=== PATIENT | male | born 1935 | race Caucasian/White ===

== ENCOUNTER 2020-07-05 09:48 | Outpatient (CLI) | payer MEDICARE, OTHER, SELFPAY ==
--- NOTE | 2020-07-05 10:10 | XR_ITS ---
WS: [id number] Sacroiliac joints, 3 views, 07/05/2020 Clinical Data: LEFT HIP PAIN/ARTHRITIS Comparison: None. Findings: The SI joints are normal in width. No erosion, sclerosis or destruction is seen. There are no fractur es or dislocations. The adjacent visualized pelvis and hips are unremarkable. XR/XR sacroiliac jts m 3V [id number] Impression: Negative SI joints.
--- NOTE | 2020-07-05 10:10 | XR_ITS ---
WS: [id number] Left hip, AP and frog leg views, 07/05/2020 Clinical Data: LEFT HIP PAIN/ARTHRITIS Comparison: None. Findings: No fractures or dislocations are seen. The hip joint is intact. The soft tissues are not remarkable. The adjacent pelvis is normal. XR/XR hip LT 2-3V wo/w pel* [id number] Impression: Negative left hip.
--- NOTE | 2020-07-05 10:10 | XR_ITS ---
WS: [id number] Lumbar spine, 3 views, 07/05/2020 Clinical Data: ARTHRITIS/L HIP PAIN Comparison: None. Findings: No compression fractures are seen. There is disc space narrowing at L1-L2 and L2-L3. There is a retro listhesis of L2 on L3 of 0.6 cm. The transverse processes and SI joints are normal. There is osteoart hritic spurring of all the lumbar vertebral bodies. There is a levoscoliosis. XR/XR lumbar spine 2-3V* [id number] Impression: 1. Degenerative disc narrowing at L1-L2 and L2-L3. 2. Retrolisthesis of 0.6 cm of L2 on L3. 3. Degenerative arthritis of all lumbar vertebral bodies with levoscoliosis.
== END 2020-07-05 09:49 | disposition home or self-care (01) ==
PROVIDERS: PCP Family Medicine; Visit Provider Family Medicine
DX: M25.552 Pain in left hip (principal); M47.816 Spondylosis without myelopathy or radiculopathy, lumbar region
CPT/HCPCS: 72100; 72202; 73502

== ENCOUNTER 2020-07-30 06:24 | Outpatient (RCR) | payer MEDICARE, OTHER, SELFPAY | END 2020-08-28 23:59 | disposition home or self-care (01) | LOC: SPT 06:24 | PROVIDERS: PCP Family Medicine; Referring Provider Family Medicine; Visit Provider Family Medicine | DX: M51.36 Other intervertebral disc degeneration, lumbar region (principal); M25.552 Pain in left hip; M19.90 Unspecified osteoarthritis, unspecified site | CPT/HCPCS: 97110; 97140; 97161 ==

== ENCOUNTER 2020-08-29 06:00 | Outpatient (RCR) | payer MEDICARE, OTHER, SELFPAY | END 2020-09-28 23:59 | disposition home or self-care (01) | LOC: SPT 06:00 | PROVIDERS: PCP Family Medicine; Referring Provider Family Medicine; Visit Provider Family Medicine | DX: M51.36 Other intervertebral disc degeneration, lumbar region (principal); M25.552 Pain in left hip; M19.90 Unspecified osteoarthritis, unspecified site | CPT/HCPCS: 97110 ==

== ENCOUNTER 2021-04-16 13:02 | Outpatient (CLI) | payer MEDICARE, OTHER, SELFPAY ==
--- NOTE | 2021-04-16 13:19 | XR_ITS ---
WS: [id number] Chest 2 views, 04/16/2021 Clinical Data: CHEST WALL PAIN Comparison: PA and lateral chest, 04/25/2018. Findings: No nodules, masses or effusions are seen. The heart is enlarged. The pulmonary vascularity is not increased. No pneumonia or pneumothorax is seen. The aortic arch and descending thoracic aorta show tortuosity and calcification. There is a dextroscoliosis. XR/XR chest 2V* [id number] Impression: Atherosclerosis and cardiomegaly.
--- NOTE | 2021-04-16 13:19 | XR_ITS ---
WS: [id number] Right shoulder, 3 views, 04/16/2021 Clinical Data: R SHOULDER PAIN Comparison: None. Findings: No fractures are seen. There is widening of the AC joint.. The adjacent right clavicle, right scapula and ribs are normal. The soft tissues are unremarkable. XR/XR shoulder RT min 2V* [id number] Impression: Widening of the right AC joint which may be a result of the recent injury.
--- NOTE | 2021-04-16 13:19 | XR_ITS ---
WS: [id number] Right elbow, 3 views, 04/16/2021 Clinical Data: R ELBOW PAIN Comparison: None. Findings: No fractures or dislocations are seen. The radial head is normal. The soft tissues are unremarkable. There is a small calcification adjacent to the biceps tuberosity of the proximal right radius. XR/XR elbow RT min 3V* [id number] Impression: Negative right elbow.
== END 2021-04-16 13:03 | disposition home or self-care (01) ==
LOC: RAD 13:07
PROVIDERS: PCP Family Medicine; Visit Provider Family Medicine
DX: M25.521 Pain in right elbow (principal); R07.89 Other chest pain; M25.511 Pain in right shoulder; I70.90 Unspecified atherosclerosis; I51.7 Cardiomegaly
CPT/HCPCS: 71046; 73030; 73080

== ENCOUNTER 2021-06-02 10:15 | Outpatient (CLI) | payer MEDICARE, OTHER, SELFPAY ==
--- NOTE | 2021-06-02 10:33 | MR_ITS ---
WS: [id number] MRI RIGHT SHOULDER HISTORY: R SHOULDER PAIN COMPARISON: Radiograph 04/16/2021 TECHNIQUE: Multiplanar sequences of the shoulder joint are submitted. This examination is significantly limited by motion artifact on most sequences. Mild widening of the AC joint 9.6 mm. There is a fluid gap along the AC joint due to ligamentous tear . There is mild inferior displacement of the distal clavicle with encroachment upon the supraspinatus muscle and tendon. Osteophytes and hypertrophic bone formation involving the distal clavicle. There is a large amount of fluid extending into the subacromial and subdeltoid bursa. Humeral head is high riding abutting the undersurface of the acromion. There is a 4 mm osteophyte from the distal undersur face of the acromion. No os acromion. Biceps tendon remains in normal position of the bicipital groov e. Increase fluid along the tendon sheath. No fracture or marrow edema. High riding humeral head. Tear with retraction of the supraspinatus tendon. Tendon is retracted to th e glenoid. There is fluid filling the gap of the distal tendon. Infraspinatus tendon is identified to the superior humeral head. Subscapularis tendon remains intact. Marked atrophy and a small amount of edema within the infraspinatus and supraspinatus muscles. Simple tear involving the anterior labrum. Abnormal signal in the inferior labrum. There is also increased edema in the muscle surrounding the clavicle and extending into the pectoralis muscle. MR/MR shoulder RT wo con* [id number] IMPRESSION: 1. Quality of this examination is limited due to patient motion on nearly all sequences. 2. Torn retracted supraspinatus and infraspinatus tendons with muscle atrophy and edema. 3. Complete tear with ACL ligament with a fluid gap and a large amount of randy a in the soft tissues surrounding the AC joint and bursal fluid. Mild widening of the AC joint. 4. Pectoralis muscle edema. 5. Humeral head is high riding abutting the undersurface of the acromion. 6. Mild degenerative changes and small tears involving the superior and inferi or labrum.
== END 2021-06-02 10:16 | disposition home or self-care (01) ==
LOC: RAD 10:19
PROVIDERS: PCP Family Medicine; Visit Provider Family Medicine
DX: M75.101 Unspecified rotator cuff tear or rupture of right shoulder, not specified as traumatic (principal); S43.51XA Sprain of right acromioclavicular joint, initial encounter; R60.0 Localized edema; X58.XXXA Exposure to other specified factors, initial encounter
CPT/HCPCS: 73221

== ENCOUNTER 2021-07-31 16:29 | Outpatient (CLI) | payer MEDICARE, OTHER, SELFPAY ==
--- NOTE | 2021-07-31 16:38 | XRR_ITS ---
PROCEDURE INFORMATION: Exam: XR Lumbosacral Spine Exam date and time: 07/31/2021 4:52 PM Age: 85 years old Clinical indication: Pain; Other: Left hip; Additional info: Degenerative disc disease, left hip pain TECHNIQUE: Imaging protocol: XR of the lumbosacral spine. Views: 2 or 3 views. Total images: 3 COMPARISON: CR XR lumbar spine 2-3V* [id number] 07/05/2020 10:23 AM FINDINGS: Bones/joints: T12-L3 degenerative disc disease is noted with vacuum phenomenon. Osteophytes are noted extending from the vertebrae. No acute spinal pathology is detected. L4-S1 Facet joint degenerative changes are present. Vertebral body heights are maintained. Soft tissues: Unremarkable. Vasculature: Incidental phleboliths noted. XR/XR lumbar spine 2-3V* [id number] IMPRESSION: Degenerative changes as described above but no acute pathology detected. These findings are stable when compared to the prior exam.
--- NOTE | 2021-07-31 16:53 | XRR_ITS ---
PROCEDURE INFORMATION: Exam: XR Left Hip Exam date and time: 07/31/2021 4:52 PM Age: 85 years old Clinical indication: Hip pain; Left hip; Additional info: Lt hip pain TECHNIQUE: Imaging protocol: XR Left hip. Views: 2 or 3 views hip with pelvis when performed. Total images: 3 COMPARISON: CR XR hip LT 2-3V wo/w pel* [id number] 07/05/2020 10:23 AM FINDINGS: Bones/joints: No acute fracture nor subluxation. No osseous erosion nor periosteal reaction. Soft tissues: Unremarkable. Vasculature: Incidental phleboliths noted. Moderate atherosclerotic disease is evident. XR/XR hip LT 2-3V wo/w pel* [id number] IMPRESSION: No acute osseous pathology.
== END 2021-07-31 16:30 | disposition home or self-care (01) ==
LOC: RAD 16:32
PROVIDERS: PCP Family Medicine; Visit Provider Family Medicine
DX: M51.36 Other intervertebral disc degeneration, lumbar region (principal); M25.552 Pain in left hip
CPT/HCPCS: 72100; 73502

== ENCOUNTER → 2021-08-06 12:09 | Outpatient (BNVA) | payer MEDICARE, OTHER, SELFPAY | PROVIDERS: PCP Family Medicine; Visit Provider Family Medicine | DX: N28.9 Disorder of kidney and ureter, unspecified (principal); N40.0 Benign prostatic hyperplasia without lower urinary tract symptoms; I10 Essential (primary) hypertension; M19.90 Unspecified osteoarthritis, unspecified site; I48.91 Unspecified atrial fibrillation; D64.9 Anemia, unspecified; I51.7 Cardiomegaly; Z79.01 Long term (current) use of anticoagulants; Z79.899 Other long term (current) drug therapy | CPT/HCPCS: 80053; 80061; 82607; 83036; 84443; 85025; 85610; 86140 ==

== ENCOUNTER → 2021-09-02 09:01 | Outpatient (BNVA) | payer MEDICARE, OTHER, SELFPAY | PROVIDERS: PCP Family Medicine; Visit Provider Family Medicine | DX: I48.91 Unspecified atrial fibrillation (principal) | CPT/HCPCS: 85610 ==

== ENCOUNTER → 2021-09-15 12:05 | Outpatient (BNVA) | payer MEDICARE, OTHER, SELFPAY | PROVIDERS: PCP Family Medicine; Visit Provider Family Medicine | DX: N28.9 Disorder of kidney and ureter, unspecified (principal); I10 Essential (primary) hypertension; M19.90 Unspecified osteoarthritis, unspecified site; I48.91 Unspecified atrial fibrillation; D64.9 Anemia, unspecified; I51.7 Cardiomegaly; Z79.01 Long term (current) use of anticoagulants | CPT/HCPCS: 85610 ==

== ENCOUNTER → 2021-10-02 10:31 | Outpatient (BNVA) | payer MEDICARE, OTHER, SELFPAY | PROVIDERS: PCP Family Medicine; Visit Provider Family Medicine | DX: I48.91 Unspecified atrial fibrillation (principal) | CPT/HCPCS: 85610 ==

== ENCOUNTER → 2021-10-29 09:36 | Outpatient (BNVA) | payer MEDICARE, OTHER, SELFPAY | PROVIDERS: PCP Family Medicine; Visit Provider Family Medicine | DX: I48.91 Unspecified atrial fibrillation (principal) | CPT/HCPCS: 85610 ==

== ENCOUNTER → 2021-11-24 08:50 | Outpatient (BNVA) | payer MEDICARE, OTHER, SELFPAY | PROVIDERS: PCP Family Medicine; Visit Provider Family Medicine | DX: I48.91 Unspecified atrial fibrillation (principal) | CPT/HCPCS: 85610 ==

== ENCOUNTER → 2021-12-01 08:25 | Outpatient (BNVA) | payer MEDICARE, OTHER, SELFPAY | PROVIDERS: PCP Family Medicine; Visit Provider Family Medicine | DX: I48.91 Unspecified atrial fibrillation (principal) | CPT/HCPCS: 85610 ==

== ENCOUNTER → 2021-12-29 10:41 | Outpatient (BNVA) | payer MEDICARE, OTHER, SELFPAY | PROVIDERS: PCP Family Medicine; Visit Provider Family Medicine | DX: I48.91 Unspecified atrial fibrillation (principal) | CPT/HCPCS: 85610 ==

== ENCOUNTER → 2022-02-24 08:56 | Outpatient (BNVA) | payer MEDICARE, OTHER, SELFPAY | PROVIDERS: PCP Family Medicine; Visit Provider Family Medicine | DX: I48.91 Unspecified atrial fibrillation (principal); Z78.9 Other specified health status | CPT/HCPCS: 85610 ==

== ENCOUNTER → 2022-04-21 08:15 | Outpatient (BNVA) | payer MEDICARE, OTHER, SELFPAY | PROVIDERS: PCP Family Medicine; Visit Provider Family Medicine | DX: I48.91 Unspecified atrial fibrillation (principal); I10 Essential (primary) hypertension | CPT/HCPCS: 85610 ==

== ENCOUNTER → 2022-05-15 12:04 | Outpatient (BNVA) | payer MEDICARE, OTHER, SELFPAY | PROVIDERS: PCP Family Medicine; Visit Provider Family Medicine | DX: I48.91 Unspecified atrial fibrillation (principal) | CPT/HCPCS: 85610 ==

== ENCOUNTER 2022-06-22 13:29 | Outpatient (CLI) | payer MEDICARE, OTHER, SELFPAY ==
[2022-06-22 15:26] LABS: INR 2.05 (0.9-1.1); Prothrombin Time (Patient) 23.9 Seconds (12.1-14.9)
== END 2022-06-22 13:30 | disposition home or self-care (01) ==
PROVIDERS: PCP Family Medicine; Visit Provider Family Medicine
DX: I48.91 Unspecified atrial fibrillation (principal); Z79.01 Long term (current) use of anticoagulants
CPT/HCPCS: 36415; 85610

== ENCOUNTER 2022-07-04 09:40 | Outpatient (CLI) | payer MEDICARE, OTHER, SELFPAY ==
--- NOTE | 2022-07-04 10:15 | CT_ITS ---
WS: [id number] NONCONTRAST CT LEFT HIP TECHNIQUE: Noncontrast CT LEFT with coronal and sagittal reformatted images. CLINICAL INFORMATION: M16.9 - Osteoarthritis of hip, unspecified COMPARISON: None. DLP: 315.[address] scans at [facility] use at least one of these dose optimization techniques: automated e xposure control; mA and/or kV adjustment per patient size (includes targeted exams where dose is matc hed to clinical indication); or iterative reconstruction. FINDINGS: Moderate degenerative arthritis LEFT hip joint space narrowing. Vascular calcification. Joint space n arrowing. No acute fractures. Mild subchondral cystic change involving the acetabulum. Proximal femur appears normal. Enthesophyte along the greater trochanter with soft tissue edema and fluid suspiciou s for trochanteric bursitis. Sigmoid diverticulosis. Partially visualized enlarged prostate measuring 5.[address]/CT hip LT wo con* [id number] IMPRESSION: 1. Moderate degenerative arthritis LEFT hip with joint space narrowing. 2. No acute fractures. 3. Enthesophyte along the greater trochanter with soft tissue edema and fluid suspicious for trochanteric bursitis.
== END 2022-07-04 09:41 | disposition home or self-care (01) ==
LOC: RAD 09:42
PROVIDERS: PCP Family Medicine; Visit Provider Family Medicine
DX: M16.12 Unilateral primary osteoarthritis, left hip (principal)
CPT/HCPCS: 73700

== ENCOUNTER → 2022-07-21 12:37 | Outpatient (BNVA) | payer MEDICARE, OTHER, SELFPAY | PROVIDERS: PCP Family Medicine; Visit Provider Family Medicine | DX: I48.91 Unspecified atrial fibrillation (principal) | CPT/HCPCS: 85610 ==

== ENCOUNTER → 2022-08-11 09:02 | Outpatient (BNVA) | payer MEDICARE, OTHER, SELFPAY | PROVIDERS: PCP Family Medicine; Visit Provider Family Medicine | DX: I48.91 Unspecified atrial fibrillation (principal) | CPT/HCPCS: 85610 ==

== ENCOUNTER → 2022-08-20 06:45 | Outpatient (BNVA) | payer MEDICARE, OTHER, SELFPAY | PROVIDERS: PCP Family Medicine; Referring Provider Family Medicine; Visit Provider Student in an Organized Health Care Education/Training Program | DX: M70.62 Trochanteric bursitis, left hip (principal) | CPT/HCPCS: 20610; 73502; 99204; J3301; J3490 ==

== ENCOUNTER → 2022-09-02 08:17 | Outpatient (BNVA) | payer MEDICARE, OTHER, SELFPAY | PROVIDERS: PCP Family Medicine; Visit Provider Family Medicine | DX: I48.91 Unspecified atrial fibrillation (principal); I10 Essential (primary) hypertension | CPT/HCPCS: 85610 ==

== ENCOUNTER → 2022-09-07 09:18 | Outpatient (BNVA) | payer MEDICARE, OTHER, SELFPAY | PROVIDERS: PCP Family Medicine; Visit Provider Family Medicine | DX: M16.9 Osteoarthritis of hip, unspecified (principal); I10 Essential (primary) hypertension; I48.91 Unspecified atrial fibrillation; R53.83 Other fatigue; E55.9 Vitamin D deficiency, unspecified; E03.9 Hypothyroidism, unspecified; Z13.6 Encounter for screening for cardiovascular disorders; Z79.899 Other long term (current) drug therapy | CPT/HCPCS: 80053; 80061; 82607; 82652; 83036; 84443; 85025; 86140 ==

== ENCOUNTER → 2022-09-09 15:37 | Outpatient (BNVA) | payer MEDICARE, OTHER, SELFPAY | PROVIDERS: PCP Family Medicine; Visit Provider Family Medicine | DX: M16.9 Osteoarthritis of hip, unspecified (principal); I10 Essential (primary) hypertension; I48.91 Unspecified atrial fibrillation; R53.83 Other fatigue; E55.9 Vitamin D deficiency, unspecified; E03.9 Hypothyroidism, unspecified; Z13.6 Encounter for screening for cardiovascular disorders | CPT/HCPCS: 84153 ==

== ENCOUNTER → 2022-09-10 09:57 | Outpatient (BNVA) | payer MEDICARE, OTHER, SELFPAY | PROVIDERS: PCP Family Medicine; Visit Provider Family Medicine | DX: E86.0 Dehydration (principal); I48.91 Unspecified atrial fibrillation; I10 Essential (primary) hypertension; R97.20 Elevated prostate specific antigen [PSA] | CPT/HCPCS: 80053; 84153 ==

== ENCOUNTER → 2022-09-11 11:35 | Outpatient (BNVA) | payer MEDICARE, OTHER, SELFPAY | PROVIDERS: PCP Family Medicine; Visit Provider Family Medicine | DX: E87.5 Hyperkalemia (principal) | CPT/HCPCS: 80048 ==

== ENCOUNTER → 2022-09-15 08:34 | Outpatient (BNVA) | payer MEDICARE, OTHER, SELFPAY | PROVIDERS: PCP Family Medicine; Visit Provider Family Medicine | DX: E86.0 Dehydration (principal); E87.5 Hyperkalemia; R97.20 Elevated prostate specific antigen [PSA]; R53.83 Other fatigue; I10 Essential (primary) hypertension; I48.91 Unspecified atrial fibrillation | CPT/HCPCS: 80048 ==

== ENCOUNTER → 2022-09-21 08:08 | Outpatient (BNVA) | payer MEDICARE, OTHER, SELFPAY | PROVIDERS: PCP Family Medicine; Visit Provider Family Medicine | DX: E87.5 Hyperkalemia (principal) | CPT/HCPCS: 80053 ==

== ENCOUNTER → 2022-09-28 08:01 | Outpatient (BNVA) | payer MEDICARE, OTHER, SELFPAY | PROVIDERS: PCP Family Medicine; Visit Provider Family Medicine | DX: E87.5 Hyperkalemia (principal); R53.83 Other fatigue; E87.1 Hypo-osmolality and hyponatremia; E86.0 Dehydration; I48.91 Unspecified atrial fibrillation; R97.20 Elevated prostate specific antigen [PSA] | CPT/HCPCS: 80053; 82088; 82533; 85610 ==

== ENCOUNTER → 2022-10-06 16:03 | Outpatient (BNVA) | payer MEDICARE, OTHER, SELFPAY | PROVIDERS: PCP Family Medicine; Visit Provider Clinical Nurse Specialist Adult Health | DX: E87.1 Hypo-osmolality and hyponatremia (principal); E87.5 Hyperkalemia; I48.11 Longstanding persistent atrial fibrillation; R60.0 Localized edema | CPT/HCPCS: 80048 ==

== ENCOUNTER → 2022-10-08 13:28 | Outpatient (BNVA) | payer MEDICARE, OTHER, SELFPAY | PROVIDERS: PCP Family Medicine; Visit Provider Family Medicine | DX: E87.1 Hypo-osmolality and hyponatremia (principal); R60.0 Localized edema | CPT/HCPCS: 80048 ==

== ENCOUNTER 2022-10-12 08:58 | Emergency (ER) | payer MEDICARE, OTHER, SELFPAY ==
--- NOTE | 2022-10-12 09:05 | ECG_ITS ---
[facility] Test Date: 2022-10-12 Pat Name: Daniel Gibson Department: Room: Gender: Male Bilingual [employer]: : 1935 Requested By: Satish Mead Order Number: [id number] Anuja MD: Shaun Perdomo M.D. Measurements Intervals [place] Rate: 50 P: 0 DE: 0 QRS: 34 QRSD: 80 T: 18 QT: 385 QTc: 354 Interpretive Statements ATRIAL FIBRILLATION WITH SLOW VENTRICULAR RESPONSE SEPTAL MYOCARDIAL INFARCTION , PROBABLY OLD [40+ ms Q WAVE IN V1/V2] No previous ECG available for comparison Electronically Signed On 10-12-2022 9:57:00 CDT by Shaun Perdomo M.D. [email or web address]
--- NOTE | 2022-10-12 09:05 | XRR_ITS ---
PROCEDURE INFORMATION: Exam: XR Chest Exam date and time: 10/12/2022 9:55 AM Age: 87 years old Clinical indication: Cough and dyspnea; Additional info: Dyspnea/cough TECHNIQUE: Imaging protocol: Radiologic exam of the chest. Views: 1 view. COMPARISON: CR XR chest 2V* [id number] 04/16/2021 1:30 PM FINDINGS: Lungs: Unremarkable. No consolidation. Pleural spaces: Unremarkable. No pleural effusion. No pneumothorax. Heart/Mediastinum: Stable cardiomegaly. Bones/joints: Unremarkable. XR/XR chest 1V portable [id number] IMPRESSION: No acute findings. No significant change.
--- NOTE | 2022-10-12 09:14 | ED_ITS ---
HPI - General Adult General: Chief complaint: Extremity Problem,Nontraumatic Stated complaint: physician sent, severe adema Time Seen by Provider: 10/12/22 09:03 Source: patient Mode of arrival: ambulatory History of Present Illness: 87-year-old male presents emergency room with complaint of lower leg edema. He states it began when he get some heat exhaustion he was taken off of his lisinopril for hyperkalemia and changed to amlodipine after the amlodipine is begun he noted swelling in his lower extremities initially persisted with amlodipine and then was seen last week by the midlevel Dr. Gold's office and switched to lisinopril. He states that he edema has been persistent despite changing back to lisinopril and stopping the amlodipine. He does have a history of atrial fibrillation and is currently on warfarin. Onset (ago): week(s) Location: left, right and lower extremity Severity: moderate Quality: aching Relieving factors: none Exacerbating factors: none Associated symptoms: Deny chest pain, confusion, cough, diaphoresis, decreased appetite, dyspnea, fevers/chills, headache(s), malaise, nausea, rash, palp itations, seizures, short of breath, syncope, vomiting or weakness Treatments prior to arrival: none Review of Systems Const: Denies: fever(s), chills, malaise or diaphoresis ENMT: Denies: throat pain, ear or mastoid pain, nasal discharge or nasal congestion Card: Denies: chest pain, palpitations or syncope Resp: Denies: dyspnea GI: Denies: nausea or vomiting : Denies: flank pain, dysuria, urinary frequency or urinary urgency Skin/Breast: Denies: rash Neuro: Denies: headache(s) or confusion PFS ED PFSH: Medical History Atrial fibrillation Essential hypertension Physical Exam Const: GENERAL APPEARANCE: cooperative and comfortable ORIENTATION/CONSCIOUSNESS: Yes awake, Yes oriented to person, Yes oriented to place and Yes oriented to time HENMT: COMMON NORMALS: normocephalic, atraumatic and hearing grossly normal bilaterally HEAD & SCALP: normocephalic and atraumatic Resp: COMMON NORMALS: normal respiratory effort, No retractions, No use of accessory muscles and clear to auscultation bilaterally AUSCULTATION: clear to auscultation bilaterally Cardio: COMMON NORMALS: regular rate, regular rhythm and No murmurs present (Cardio) RATE: regular rate RHYTHM: regular rhythm GI: COMMON NORMALS: Soft to palpation and No hepatosplenomegaly present AUSCULTATION: Yes normoactive bowel sounds PALPATION: Yes Soft to palpation, No Tenderness to palpation present (GI), No Guarding due to palpation present (GI) and Yes No hepatosplenomegaly present Extremity: COMMON NORMALS: normal to inspection, capillary refill normal and no calf tenderness GENERAL: Yes edema (2+ lower extremity edema to the level of the knees) Neuro: SENSORIUM/ORIENTATION: Yes oriented to person, Yes oriented to place and Yes oriented to time Skin: COMMON NORMALS: no rashes or lesions noted GENERAL SKIN EXAM: no rashes or lesions noted Course Vital Signs: Vital signs: Vital Signs Temperature 97.5 F L 10/12/22 09:16 Pulse Rate 48 L 10/12/22 11:30 Respiratory Rate 15 10/12/22 10:51 Blood Pressure 169/97 10/12/22 11:30 Pulse Oximetry 92 10/12/22 11:30 Oxygen Delivery Me thod Room Air 10/12/22 10:51 [facility] - General Adult Medical Decision Making Patient has edema lower extremities not appear to be in decompensated congestive heart failure at this time. Is not having pain or shortness of breath. He does have some chronic kidney disease. We will add hydralazine 25 mg twice daily. Set him up for an outpatient echocardiogram follow-up with primary care doctor return if he has further problems. Medical Records I reviewed the patient's medical records. Lab Data I reviewed the patient's lab results. 10/12/22 09:25 10/12/22 09:25 Radiology Impressions Chest X-Ray 10/12/22 09:05 IMPRESSION: No acute findings. No significant change. Laboratory Results WBC 6.4 10^3/uL (4.0-10.0) 10/12/22 09:25 RBC 4.46 10^6/uL (4.1-5.3) 10/12/22 09:25 Hgb 11.4 g/dL (11.7-16.6) L 10/12/22 09:25 Hct 38.9 % (42.0-52.0) L 10/12/22 09:25 MCV 87.2 fl (80-94) 10/12/22 09:25 MCH 25.6 pg (28.0-34.0) L 10/12/22 09:25 MCHC 29.3 g/dL (30.0-36.0) L 10/12/22 09:25 RDW 20.1 % (12.1-15.1) H 10/12/22 09:25 Plt Count 228 10^3/cmm (130-400) 10/12/22 09:25 MPV 8.7 fL (7.4-10.4) 10/12/22 09:25 Neut % (Auto) 73.4 % 10/12/22 09:25 Lymph % (Auto) 17.7 % 10/12/22 09:25 Stephens % (Auto) 5.4 % 10/12/22 09:25 Eos % (Auto) 2.3 % 10/12/22 09:25 Baso % (Auto) 0.6 % 10/12/22 09:25 Neut # (Auto) 4.72 10^3/uL (1.8-7.7) 10/12/22 09:25 Lymph # (Auto) 1.1 10^3/uL (0.8-4.8) 10/12/22 09:25 Stephens # (Auto) 0.4 10^3/uL (0.2-0.9) 10/12/22 09:25 Eos # (Auto) 0.2 10^3/uL (0.0-0.8) 10/12/22 09:25 Baso # (Auto) 0.0 10^3/uL (0.0-0.1) 10/12/22 09:25 Nucleated RBC % (auto) 0 % 10/12/22 09:25 Nucleated RBCs # 0.0 /100WBC 10/12/22 09:25 PT 20.80 SECONDS (12.1-14.9) H 10/12/22 09:25 INR 1.73 (0.8-1.2) H 10/12/22 09:25 Sodium 139 mmol/L (136-145) 10/12/22 09:25 Potassium 4.8 mmol/L (3.5-5.1) 10/12/22 09:25 Chloride 104 mmol/L (98-107) 10/12/22 09:25 Carbon Dioxide 23 mmol/L (22-29) 10/12/22 09:25 Anion Gap 16.8 (5-19) 10/12/22 09:25 BUN 26 mg/dL (8-23) H 10/12/22 09:25 Creatinine 1.5 mg/dL (0.7-1.2) H 10/12/22 09:25 GFR Calculation Not Reportable 10/12/22 09:25 Glucose 140 mg/dL (65-115) H 10/12/22 09:25 Calculated Osmolality 295 mOsm/kg (285-295) 10/12/22 09:25 Calcium 8.5 mg/dL (8.5-10.5) 10/12/22 09:25 Total Bilirubin 0.4 mg/dL (0.15-1.2) 10/12/22 09:25 AST 18 U/L (0-40) 10/12/22 09:25 ALT 13 U/L (0-41) 10/12/22 09:25 Alkaline Phosphatase 76 U/L (40-130) 10/12/22 09:25 Troponin T Baseline 34 ng/L (0-15) H 10/12/22 09:25 Troponin T 120 Minute 33.44 ng/L (0-15) H 10/12/22 11:23 Delta Troponin T -0.56 ABS# (0-10) L 10/12/22 11:23 NT-Pro-B Natriuret Pep 1857 pg/mL (0-450) H 10/12/22 09:25 Total Protein 5.8 g/dL (6.6-8.7) L 10/12/22 09:25 Albumin 3.8 g/dL (3.5-5.2) 10/12/22 09:25 Globulin 2.0 g/dL (1.3-4.6) 10/12/22 09:25 Discharge Plan Discharge Patient Disposition: Home Clinical Impression: Lower extremity edema, Atrial fibrillation, Chronic kidney disease (CKD) Condition: Stable Prescriptions: New hydralazine 25 mg tablet 25 mg PO BID Qty: 60 0RF No Action (DME) hydrofera blue ready See Rx Instructions .Route .MEDSUPPLY Qty: 1 0RF Rx Instructions: As directed per included instructions meclizine 12.5 mg Tablet 12.5 mg PO TID PRN (Reason: Dizziness) Super Beta Prostate 1 cap PO BID lisinopril 20 mg tablet 20 mg PO QAM prednisone 5 mg tablet 5 mg PO QAM warfarin 3 mg tablet 3 mg PO QAM omeprazole 20 mg capsule,delayed release(DR/EC) 20 mg PO QAM Anacin 400-32 mg Tablet 2 tab PO Q6H PRN (Reason: Pain) Discharge Orders: Discharge ED (Routine); Ordered 10/12/22 Ordered By: Satish North Referrals: Mjaor Higginbotham DO [Primary Care Provider] - Discharge Diet: Usual diet Discharge Activity: Increase activity as tolerated Patient Instructions: Opioid Safety, Pain Management Activity Restrictions/Additional Instructions: Continue lisinopril add hydralazine 25 twice daily follow-up with your doctor within the next week to reevaluate blood pressure and lower extremity edema. Coding Level of Care Code ED Junior Analyst for [employer]
[2022-10-12 09:16] VITALS: BP 190/83; PULSE 62; RESP 18; TEMP 36.4; O2SAT 94; BMI 25.8
[2022-10-12 09:21] VITALS: BP 172/81; PULSE 59; RESP 19; O2SAT 91
[2022-10-12 09:38] LABS: Basophils % 0.6 %; Eosinophils # 0.2 10^3/uL (0.0-0.8); Eosinophils % 2.3 %; Hematocrit 38.9 % (42.0-52.0); Hemoglobin 11.4 g/dL (11.7-16.6); Lymphocytes # 1.1 10^3/uL (0.8-4.8); Lymphocytes % 17.7 %; Mean Corpuscular HGB Conc 29.3 g/dL (30.0-36.0); Mean Corpuscular Hemoglobin 25.6 pg (28.0-34.0); Mean Corpuscular Volume 87.2 fl (80-94); Mean Platelet Volume 8.7 fL (7.4-10.4); Monocytes # 0.4 10^3/uL (0.2-0.9); Monocytes % 5.4 %; Neutrophils # 4.72 10^3/uL (1.8-7.7); Neutrophils % 73.4 %; Nucleated Red Blood Cells % 0 %; Platelet Count 228 10^3/cmm (130-400); Red Blood Count 4.46 10^6/uL (4.1-5.3); Red Cell Distribution Width 20.1 % (12.1-15.1); White Blood Count 6.4 10^3/uL (4.0-10.0)
[2022-10-12 09:46] LABS: INR 1.73 (0.8-1.2)
[2022-10-12 09:51] VITALS: BP 159/86; PULSE 48; O2SAT 98
[2022-10-12 09:52] LABS: Troponin(5th) Baseline 34 ng/L (0-15)
[2022-10-12 10:16] LABS: Alanine Aminotransferase 13 U/L (0-41); Albumin Level 3.8 g/dL (3.5-5.2); Alkaline Phosphatase 76 U/L (40-130); Aspartate Amino Transferase 18 U/L (0-40); Blood Urea Nitrogen 26 mg/dL (8-23); Calcium 8.5 mg/dL (8.5-10.5); Carbon Dioxide 23 mmol/L (22-29); Chloride 104 mmol/L (98-107); Glucose 140 mg/dL (65-115); NT Pro B Type Natriuretic Pept 1857 pg/mL (0-450); Osmolality Calculated 295 mOsm/kg (285-295); Sodium 139 mmol/L (136-145); Total Bilirubin 0.4 mg/dL (0.15-1.2); Total Protein 5.8 g/dL (6.6-8.7)
[2022-10-12 10:19] LABS: Anion Gap 16.8 (5-19); Potassium 4.8 mmol/L (3.5-5.1)
[2022-10-12] MEDS: FUROsemide 10 mg/mL SDV 4mL 40 MG IVP (10:21)
--- NOTE | 2022-10-12 10:32 | PC.PHAR ---
pt states he takes care of his own medications-rx filled 08/14/22 90d/s lisinopril 20mg bid pt states he only takes 20mg qam states he was put on amlodipine 5mg daily but states it was dced around 10/08/22 and changed back to lisinopril 20mg qam-notes are made in the pharmacy comment
[2022-10-12 10:51] VITALS: BP 170/84; PULSE 58; RESP 15; O2SAT 95
[2022-10-12 11:30] VITALS: BP 169/97; PULSE 48; O2SAT 92
[2022-10-12 11:46] LABS: Troponin 5 2HR 33.44 ng/L (0-15)
[2022-10-12 11:49] LABS: Troponin 5 2HR Delta -0.56 ABS# (0-10)
--- NOTE | 2022-10-13 12:22 | DCPLANNER ---
Addendum entered by Sapna Escalante 10/30/22 11:11: Patient did attend echo Addendum entered by Sapna Escalante 10/14/22 13:09: Patient has an outpatient echo scheduled for Sunday, October 23, 2022 at 8:30. Original Note: manager community outreach had message to schedule an outpatient echo cardiogram for patient. manager community outreach faxed signed order to centralized scheduling, who will call patient with appointment information.
== END 2022-10-12 11:30 | disposition home or self-care (01) ==
PROVIDERS: Emergency Provider Family Medicine; PCP Family Medicine
DX: R60.0 Localized edema (principal); I48.91 Unspecified atrial fibrillation; I12.9 Hypertensive chronic kidney disease with stage 1 through stage 4 chronic kidney disease, or unspecified chronic kidney disease; N18.9 Chronic kidney disease, unspecified; Z79.01 Long term (current) use of anticoagulants
CPT/HCPCS: 71045; 80053; 83880; 84484; 85025; 85610; 93005; 96374; 99285; J1940

== ENCOUNTER → 2022-10-19 09:48 | Outpatient (BNVA) | payer MEDICARE, OTHER, SELFPAY | PROVIDERS: PCP Family Medicine; Visit Provider Family Medicine | DX: N18.9 Chronic kidney disease, unspecified (principal); E87.5 Hyperkalemia; I48.91 Unspecified atrial fibrillation; E87.1 Hypo-osmolality and hyponatremia; Z09 Encounter for follow-up examination after completed treatment for conditions other than malignant neoplasm; I10 Essential (primary) hypertension | CPT/HCPCS: 80048; 83880 ==

== ENCOUNTER 2022-10-23 07:38 | Outpatient (CLI) | payer MEDICARE, OTHER, SELFPAY ==
--- NOTE | 2022-10-23 08:07 | USCV_ITS ---
Daniel Gibson Age: 87 Gender: M : 1935 Exam Date: 10/23/2022 08:25 Ordering Phys: Satish North DO Technologist: Exam Location: [facility] [place] Indication: murmur BP: 136 / 85 HR: 73 Rhythm: Sinus Technical Quality: Adequate MEASUREMENTS (Male / Female) Normal Values 2D ECHO LV Diastolic Diameter PLAX 4.1 cm 4.2 - 5.9 / 3.9 - 5.3 cm LV Systolic Diameter PLAX 2.7 cm IVS Diastolic Thickness 1.7 cm 0.6 - 1.0 / 0.6 - 0.9 cm IVS Systolic Thickness 2.4 cm LVPW Diastolic Thickness 1.7 cm 0.6 - 1.0 / 0.6 - 0.9 cm LVPW Systolic Thickness 2.3 cm LVOT Diameter 2.1 cm LV Ejection Fraction 2D Teich 64.7 % LV Ejection Fraction MOD 2C 78.7 % LV Ejection Fraction 2C AL 78.4 % LA Diameter 5.5 cm Aorta at Sinotubular Diameter 3.2 cm IVC Diameter 2.6 cm M-MODE Aortic Annulus Diameter 3.7 cm LA Ao Ratio MM 1.5 MV E Point Septal Separation 1.0 cm DOPPLER AV Peak Velocity 311.0 cm/s LVOT Peak Velocity 91.0 cm/s AV Area Cont Eq vti 1.0 cm squared AV Area Cont Eq pk 1.0 cm squared MV Area PHT 5.0 cm squared Mitral E to A Ratio 3.7 MV E' Velocity 56.5 cm/s Mitral E to MV E' Ratio 11.5 Mitral E to LV E' Lateral Ratio 9.4 Mitral E to LV E' Septal Ratio 14.8 TR Peak Velocity 269.0 cm/s TR Peak Gradient 28.9 mmHg TV Peak E Velocity 114.0 cm/s Right Atrial Pressure 3.0 mmHg Pulmonary Artery Systolic Pressu 31.9 mmHg RV Acceleration Time 0.1 s FINDINGS Left Ventricle Left ventricle is normal size. LV systolic function is normal with EF of 55 to 60%. No regional wall motion abnormalities are seen. Right Ventricle Normal in size and function Right Atrium Normal in size Left Atrium Normal in size Mitral Valve Structurally normal mitral valve. Mild mitral regurgitation. Aortic Valve Aortic valve is thickened and calcified. Moderate aortic stenosis with aortic valve area of 1.01cm2 and mean gradient of 22.8mmHg. Tricuspid Valve Mild to moderate tricuspid regurgitation. RVSP is 40-45mmHg. Mild pulmonary hypertension. Pulmonic Valve Not well visualized Pericardium Normal Aorta Normal in size IVC Appears to be dilated CONCLUSIONS LV systolic function is normal with EF of 55-60% Mild mitral regurgitation Moderate aortic stenosis. Mild to moderate tricuspid regurgitation Mild pulmonary hypertension IVC appears to be dilated. Compared to prior echocardiogram from 2019, aortic stenosis has worsened. Roger Krueger MD (Electronically Signed) Final Date: 23 October 2022 14:32 S
[2022-10-23 09:43] LABS: Anion Gap 14.9 (5-19); Blood Urea Nitrogen 34 mg/dL (8-23); Calcium 8.9 mg/dL (8.5-10.5); Carbon Dioxide 26 mmol/L (22-29); Chloride 101 mmol/L (98-107); Glucose 93 mg/dL (65-115); NT Pro B Type Natriuretic Pept 1270 pg/mL (0-450); Osmolality Calculated 291 mOsm/kg (285-295); Potassium 4.9 mmol/L (3.5-5.1); Sodium 137 mmol/L (136-145)
== END 2022-10-23 07:39 | disposition home or self-care (01) ==
PROVIDERS: PCP Family Medicine; Visit Provider Family Medicine
DX: E87.1 Hypo-osmolality and hyponatremia (principal); E87.5 Hyperkalemia; I48.91 Unspecified atrial fibrillation; N18.9 Chronic kidney disease, unspecified; I34.0 Nonrheumatic mitral (valve) insufficiency; I35.0 Nonrheumatic aortic (valve) stenosis; I07.1 Rheumatic tricuspid insufficiency; I27.20 Pulmonary hypertension, unspecified
CPT/HCPCS: 36415; 80048; 83880; 93306

== ENCOUNTER → 2022-10-28 08:56 | Outpatient (BNVA) | payer MEDICARE, OTHER, SELFPAY | PROVIDERS: PCP Family Medicine; Visit Provider Family Medicine | DX: E87.1 Hypo-osmolality and hyponatremia (principal); E87.5 Hyperkalemia; I48.91 Unspecified atrial fibrillation; I10 Essential (primary) hypertension | CPT/HCPCS: 80048; 83880; 85610 ==

== ENCOUNTER → 2022-11-03 09:07 | Outpatient (BNVA) | payer MEDICARE, OTHER, SELFPAY | PROVIDERS: PCP Family Medicine; Visit Provider Family Medicine | DX: E87.1 Hypo-osmolality and hyponatremia (principal); E87.5 Hyperkalemia; I35.0 Nonrheumatic aortic (valve) stenosis; R60.0 Localized edema; I10 Essential (primary) hypertension | CPT/HCPCS: 80048; 83880 ==

== ENCOUNTER → 2022-11-18 11:44 | Outpatient (BNVA) | payer MEDICARE, OTHER, SELFPAY | PROVIDERS: PCP Family Medicine; Referring Provider Family Medicine; Visit Provider Internal Medicine | DX: I35.0 Nonrheumatic aortic (valve) stenosis (principal); I10 Essential (primary) hypertension; I48.91 Unspecified atrial fibrillation; R06.09 Other forms of dyspnea; Z79.01 Long term (current) use of anticoagulants | CPT/HCPCS: 99204 ==

== ENCOUNTER → 2022-11-23 10:57 | Outpatient (BNVA) | payer MEDICARE, OTHER, SELFPAY | PROVIDERS: PCP Family Medicine; Visit Provider Family Medicine | DX: E87.5 Hyperkalemia (principal); I48.91 Unspecified atrial fibrillation; E87.1 Hypo-osmolality and hyponatremia; R60.0 Localized edema; I10 Essential (primary) hypertension | CPT/HCPCS: 80048; 83880; 85610 ==

== ENCOUNTER → 2022-11-24 07:23 | Outpatient (BNVA) | payer MEDICARE, OTHER, SELFPAY | PROVIDERS: PCP Family Medicine; Visit Provider Student in an Organized Health Care Education/Training Program | DX: M70.62 Trochanteric bursitis, left hip | CPT/HCPCS: 20610; 99213; J3301; J3490 ==

== ENCOUNTER → 2022-12-07 10:18 | Outpatient (BNVA) | payer MEDICARE, OTHER, SELFPAY | PROVIDERS: PCP Family Medicine; Visit Provider Family Medicine | DX: I48.91 Unspecified atrial fibrillation (principal); N39.0 Urinary tract infection, site not specified | CPT/HCPCS: 85610; 87077; 87086; 87184 ==

== ENCOUNTER 2022-12-16 08:59 | Outpatient (CLI) | payer MEDICARE, OTHER, SELFPAY ==
--- NOTE | 2022-12-16 | ECG_ITS ---
[facility] Test Date: 2022-12-16 Pat Name: Daniel Gibson Department: Room: Gender: Male Support Worker: Rolf Olivarez : 1935 Requested By: Roger Krueger Order Number: [id number] Anuja MD: Roger Krueger M.D. Interpretive Statements NAME OF STUDY: LEXISCAN SESTAMIBI STRESS TEST INDICATION: [Chest Pain; Shortness of Breath, ] Procedure: At the baseline, the blood pressure was 155/57mmHg with a heart rate of 73bpm. The electrocardiogram showed atrial fibrillation, normal axis with normal ST and T's. The Lexiscan was infused over a period of 20 seconds. A total of 0.4 mg of Lexiscan was infused. The stress phase was continued for a total of 5 minutes. Heart rate was at the end of stress phase was 76 bpm and a blood pressure of 132/83 mmHg. The EKG at the peak infusion revealed atrial fibrillation with no significant ST-T wave changes. Sestamibi was injected 20 seconds after the Lexiscan infusion. Blood pressure at the end of recovery phase was 137/80 mmHg with a heart rate of 72 bpm. Conclusion: 1. Normal EKG response to Lexiscan infusion 2. No Lexiscan induced chest pain or cardiac arrhythmia. 3. Normal blood pressure and heart rate response. 4. Sestamibi/sestamibi perfusion scan pending; see separate report. Electronically Signed On 12-24-2022 12:50:35 CDT by Roger Krueger M.D. [email or web address]
[2022-12-16 09:30] VITALS: BMI 26.1
--- NOTE | 2022-12-16 09:36 | NMCV_ITS ---
NM tao perf SPECT r/s* [id number] Daniel Gibson Age: 87 Gender: M : 1935 Exam Date: 12/16/2022 10:06 Ordering Phys: Roger Krueger M.D ([email or web address]) Technologist: KOKI Simental Exam Location: [facility] [address] Indications: CHEST PAIN, SHORTNESS OF BREATH STRESS TEST Please see separate stress test report in [facility] for full findings IMAGE PROTOCOL Rest/Stress 1 Lexiscan Day Radiopharmaceutical Dose (mCi) Administration Site Administered by Rest: Tc-99m 10.6 IV Guru Johnson, SALES AGENT [employer] Sestamibi Stress:Tc-99m 32.6 IV Guru Johnson, SALES AG[employer] Sestamibi Rest: 16-Dec-2022 60 Discovery 630 Stress: 16-Dec-2022 30 Discovery 630 0.4mg Lexiscan. Images obtained in supine and prone position. SPECT RESULTS Technical Quality: Excellent Raw Data Analysis: Normal Image Corrections: No attenuation or motion correction applied Summed Stress Score: 0 Summed Rest Score: 0 Summed Difference Score: 0 PERFUSION FINDINGS SPECT images demonstrate homogeneous tracer distribution throughout the myocardium. FUNCTIONAL RESULTS (calculated via Gated SPECT) Stress Image LV EF (%): 79 Stress EDV (mL):82 TID: 1.02 Stress ESV (mL):17 FUNCTIONAL FINDINGS: There is normal left ventricular systolic function. IMPRESSIONS 1. Normal myocardial perfusion imaging with no evidence of ischemia 2. LV systolic function is normal Roger Krueger MD (Electronically Signed) Final Date: 16 December 2022 13:30 S
[2022-12-16] MEDS: regadenoson 0.4 Mg/5 ml Syringe IVP (11:06)
[2022-12-16 11:26] VITALS: BP 137/80; PULSE 80
== END 2022-12-16 09:00 | disposition home or self-care (01) ==
LOC: CDL 09:00
PROVIDERS: PCP Family Medicine; Visit Provider Internal Medicine
DX: R06.09 Other forms of dyspnea (principal); R07.9 Chest pain, unspecified
CPT/HCPCS: 36415; 78452; 93017; 96374; A9500; J2785

== ENCOUNTER → 2022-12-21 09:22 | Outpatient (BNVA) | payer MEDICARE, OTHER, SELFPAY | PROVIDERS: PCP Family Medicine; Visit Provider Family Medicine | DX: E87.1 Hypo-osmolality and hyponatremia (principal); E87.5 Hyperkalemia | CPT/HCPCS: 80048 ==

== ENCOUNTER → 2022-12-25 13:03 | Outpatient (BNVA) | payer MEDICARE, OTHER, SELFPAY | PROVIDERS: PCP Family Medicine; Visit Provider Nurse Practitioner Family | DX: I96 Gangrene, not elsewhere classified (principal); L89.892 Pressure ulcer of other site, stage 2 | CPT/HCPCS: 11042; 99213; A6446 ==

== ENCOUNTER → 2022-12-31 11:05 | Outpatient (BNVA) | payer MEDICARE, OTHER, SELFPAY | PROVIDERS: PCP Family Medicine; Visit Provider Nurse Practitioner Family | DX: I96 Gangrene, not elsewhere classified (principal); L97.822 Non-pressure chronic ulcer of other part of left lower leg with fat layer exposed | CPT/HCPCS: 11042 ==

== ENCOUNTER → 2023-01-06 13:59 | Outpatient (BNVA) | payer MEDICARE, OTHER, SELFPAY | PROVIDERS: PCP Family Medicine; Visit Provider Family Medicine | DX: E87.1 Hypo-osmolality and hyponatremia (principal); E87.5 Hyperkalemia; N28.9 Disorder of kidney and ureter, unspecified; I48.91 Unspecified atrial fibrillation | CPT/HCPCS: 80048; 85610 ==

== ENCOUNTER → 2023-01-07 10:03 | Outpatient (BNVA) | payer MEDICARE, OTHER, SELFPAY | PROVIDERS: PCP Family Medicine; Visit Provider Nurse Practitioner Family | DX: I96 Gangrene, not elsewhere classified (principal); L97.822 Non-pressure chronic ulcer of other part of left lower leg with fat layer exposed | CPT/HCPCS: 11042; A6212 ×2 ==

== ENCOUNTER → 2023-01-08 13:25 | Outpatient (BNVA) | payer MEDICARE, OTHER, SELFPAY | PROVIDERS: PCP Family Medicine; Visit Provider Thoracic Surgery (Cardiothoracic Vascular Surgery) | DX: L97.822 Non-pressure chronic ulcer of other part of left lower leg with fat layer exposed (principal) | CPT/HCPCS: 97597; A6253 ==

== ENCOUNTER → 2023-01-14 13:37 | Outpatient (BNVA) | payer MEDICARE, OTHER, SELFPAY | PROVIDERS: PCP Family Medicine; Visit Provider Nurse Practitioner Family | DX: R52 Pain, unspecified (principal); S81.802A Unspecified open wound, left lower leg, initial encounter; X58.XXXA Exposure to other specified factors, initial encounter | CPT/HCPCS: 87070; 87077; 87176; 87186; 87205 ==

== ENCOUNTER → 2023-01-14 13:37 | Outpatient (BNVA) | payer MEDICARE, OTHER, SELFPAY | PROVIDERS: PCP Family Medicine; Visit Provider Nurse Practitioner Family | DX: I96 Gangrene, not elsewhere classified (principal); L97.822 Non-pressure chronic ulcer of other part of left lower leg with fat layer exposed | CPT/HCPCS: 11042; 11045; 99212 ==

== ENCOUNTER 2023-01-15 06:17 | Outpatient (CLI) | payer MEDICARE, OTHER, SELFPAY ==
--- NOTE | 2023-01-15 06:30 | USCV_ITS ---
Daniel Gibson Age: 87 Gender: M : 1935 Exam Date: 01/15/2023 06:38 Ordering Phys: Gabriella Bee NP Technologist: Eran Ramon [place] [facility] [place]: pain PROCEDURES: Venous duplex imaging was performed in only the left lower extremity. The following venous structures were evaluated: common femoral vein, profunda vein, proximal portion of the greater saphenous vein, superficial femoral vein, and the popliteal vein. In addition, the posterior tibial and peroneal trunk were evaluated. Serial compression, augmentation maneuvers, and spectral Doppler flow evaluation were performed. FINDINGS: Normal 2-D Doppler and augmentation and compressibility throughout the lower extremity venous structures. Additional imaging through the proximal calf veins also reveals no thrombus. Limited evaluation of the greater saphenous vein is patent with no thrombus. CONCLUSIONS No evidence of left lower extremity DVT. Ryan Enriquez MD (Electronically Signed) Final Date: 15 January 2023 09:14 S
== END 2023-01-15 06:18 | disposition home or self-care (01) ==
LOC: RAD 06:17
PROVIDERS: PCP Family Medicine; Visit Provider Nurse Practitioner Family
DX: M79.605 Pain in left leg (principal)
CPT/HCPCS: 93971

== ENCOUNTER → 2023-01-19 13:37 | Outpatient (BNVA) | payer MEDICARE, OTHER, SELFPAY | PROVIDERS: PCP Family Medicine; Visit Provider Thoracic Surgery (Cardiothoracic Vascular Surgery) | DX: I96 Gangrene, not elsewhere classified (principal); L97.822 Non-pressure chronic ulcer of other part of left lower leg with fat layer exposed | CPT/HCPCS: 97597; 97598 ==

== ENCOUNTER → 2023-01-26 15:27 | Outpatient (BNVA) | payer MEDICARE, OTHER, SELFPAY | PROVIDERS: PCP Family Medicine; Visit Provider Nurse Practitioner Family | DX: I96 Gangrene, not elsewhere classified (principal); L97.822 Non-pressure chronic ulcer of other part of left lower leg with fat layer exposed; S81.811A Laceration without foreign body, right lower leg, initial encounter; W22.8XXA Striking against or struck by other objects, initial encounter; Z09 Encounter for follow-up examination after completed treatment for conditions other than malignant neoplasm | CPT/HCPCS: 11042; 11045 ==

== ENCOUNTER 2023-01-28 08:10 | Outpatient (CLI) | payer MEDICARE, OTHER, SELFPAY ==
--- NOTE | 2023-01-28 08:45 | USR_ITS ---
PROCEDURE INFORMATION: Exam: US Duplex Bilateral Lower Extremity Arteries Exam date and time: 01/28/2023 8:26 AM Age: 87 years old Clinical indication: Edema, localized; Lower extremity, bilateral; Prior surgery; Surgery date: 6+ months; Surgery type: Right knee replacement; Additional info: R60.0 - localized edema TECHNIQUE: Imaging protocol: Real-time ultrasound scan of the arteries of the bilateral lower extremities with 2-D park scale, color Doppler flow and spectral waveform analysis. Images documented and saved. COMPARISON: US soft tissue/extremity [id number] 08/31/2017 2:36 PM FINDINGS: Right common femoral artery: No occlusion or significant stenosis. Normal waveform. Right superficial femoral artery: No occlusion or significant stenosis. Normal waveform. Right popliteal artery: No occlusion or significant stenosis. Normal waveform. Left common femoral artery: No occlusion or significant stenosis. Normal waveform. Left superficial femoral artery: No occlusion or significant stenosis. Normal waveform. Left popliteal artery: Moderate stenosis of the left popliteal artery. Other arteries: Atherosclerotic plaque throughout the proximal right and left lower extremity. No hemodynamically significant stenosis in the right lower extremity. US/CV arterial duplex [facility] [id number] IMPRESSION: Diffuse atherosclerotic plaque throughout the right and left proximal lower extremities. No hemodynamically significant stenosis in the right lower extremity. Moderate stenosis of the left popliteal artery.
== END 2023-01-28 08:11 | disposition home or self-care (01) ==
LOC: RAD 08:10
PROVIDERS: PCP Family Medicine; Visit Provider Nurse Practitioner Family
DX: R60.0 Localized edema (principal); I70.203 Unspecified atherosclerosis of native arteries of extremities, bilateral legs; S81.802A Unspecified open wound, left lower leg, initial encounter; X58.XXXA Exposure to other specified factors, initial encounter; Z96.651 Presence of right artificial knee joint
CPT/HCPCS: 93925

== ENCOUNTER 2023-02-02 09:12 | Outpatient (CLI) | payer MEDICARE, OTHER, SELFPAY ==
--- NOTE | 2023-02-02 09:30 | USCV_ITS ---
Daniel Gibson Age: 87 Gender: M : 1935 Exam Date: 02/02/2023 09:36 Ordering Phys: Gabriella Bee NP Technologist: Exam Location: [facility] [place] Indication: HISTORY: PROCEDURES: Bilateral duplex Venous Insufficiency study of the Deep and Superficial systems was carried out according to normal protocol with the patient in supine positon for deep system and dependent position for the superficial system. FINDINGS: All deep veins demonstrated compressibility without evidence of intraluminal thrombus or increased echogenicity. Spectral analysis of Doppler signals demonstrates normal response to compression maneuvers indicating patency without obstruction. Reflux determinations were made with the patient in the dependent position, the weight being on the contralateral leg. Vein measurements and reflux times are listed below were applicable. No notable reflux was seen at this time. The small saphenous veins on the right side appears to have thick henderson. CONCLUSIONS No evidence of DVT in the above-mentioned identifiable veins. 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 No significant venous reflux either in the deep or in the superficial veins Dr Fiona Whitaker MD [facility] (Electronically Signed) Final Date: 03 February 2023 09:06 S
== END 2023-02-02 09:13 | disposition home or self-care (01) ==
LOC: RAD 09:12
PROVIDERS: PCP Family Medicine; Visit Provider Nurse Practitioner Family
DX: R60.0 Localized edema (principal); L97.812 Non-pressure chronic ulcer of other part of right lower leg with fat layer exposed; L97.822 Non-pressure chronic ulcer of other part of left lower leg with fat layer exposed; Z09 Encounter for follow-up examination after completed treatment for conditions other than malignant neoplasm
CPT/HCPCS: 11042; 11045; 93970; 99212

== ENCOUNTER → 2023-02-04 11:35 | Day surgery (SDC) | payer MEDICARE, OTHER, SELFPAY ==
--- NOTE | 2023-02-04 11:54 | XR_ITS ---
WS: [id number] Portable AP upright chest, 02/04/2023 Clinical Data: PICC PLACEMENT Comparison: Portable chest, 10/12/2022 Findings: The right PICC line enters the superior vena cava and ends in the distal portion. No pneumo thorax is seen. Impression: Satisfactory placement of right PICC line.
[2023-02-04 12:00] VITALS: BP 124/73; PULSE 80; RESP 18; TEMP 36.8; O2SAT 96; BMI 25.8
== END ==
PROVIDERS: PCP Family Medicine; Visit Provider Nurse Practitioner Family
DX: Z45.2 Encounter for adjustment and management of vascular access device (principal); B95.8 Unspecified staphylococcus as the cause of diseases classified elsewhere
CPT/HCPCS: 36573; 71045; 96365; J0878

== ENCOUNTER 2023-02-08 13:29 | Outpatient (CLI) | payer MEDICARE, OTHER, SELFPAY ==
[2023-02-08 14:10] LABS: Basophils # 0.1 10^3/uL (0.0-0.1); Basophils % 1.3 %; Eosinophils # 0.1 10^3/uL (0.0-0.8); Eosinophils % 2.2 %; Hematocrit 38.3 % (37-53); Lymphocytes # 1.3 10^3/uL (0.8-4.8); Lymphocytes % 22.4 %; Mean Corpuscular HGB Conc 30.5 g/dL (30-55); Mean Corpuscular Hemoglobin 27.3 pg (27-33); Mean Corpuscular Volume 89.3 fl (82-101); Mean Platelet Volume 9.2 fL (7.4-10.4); Monocytes # 0.6 10^3/uL (0.2-0.9); Monocytes % 9.9 %; Neutrophils # 3.77 10^3/uL (1.8-7.7); Neutrophils % 63.5 %; Nucleated Red Blood Cells % 0 %; Platelet Count 321 10^3/cmm (157-399); Red Blood Count 4.29 10^6/uL (3.85-5.65); Red Cell Distribution Width 19.1 % (12.1-15.1); White Blood Count 5.94 10^3/uL (3.29-11.43)
[2023-02-08 14:26] LABS: Alanine Aminotransferase 9 U/L (0-41); Albumin Level 3.4 g/dL (3.5-5.2); Alkaline Phosphatase 92 U/L (40-130); Aspartate Amino Transferase 18 U/L (0-40); Blood Urea Nitrogen 32 mg/dL (8-23); Calcium 9.3 mg/dL (8.5-10.5); Carbon Dioxide 22 mmol/L (22-29); Chloride 102 mmol/L (98-107); Creatine Phosphokinase 48 U/L (39-308); Globulin 3.1 g/dL (1.3-4.6); Glucose 75 mg/dL (65-115); Osmolality Calculated 290 mOsm/kg (285-295); Sodium 137 mmol/L (136-145); Total Bilirubin 0.3 mg/dL (0.15-1.2); Total Protein 6.5 g/dL (6.6-8.7)
[2023-02-08 16:56] LABS: Anion Gap 17.6 (5-19); Potassium 4.6 mmol/L (3.5-5.1)
== END 2023-02-08 13:30 | disposition home or self-care (01) ==
LOC: LAB 13:29
PROVIDERS: PCP Family Medicine; Visit Provider Nurse Practitioner Family
DX: S80.821D Blister (nonthermal), right lower leg, subsequent encounter (principal); S80.822D Blister (nonthermal), left lower leg, subsequent encounter; S91.114D Laceration without foreign body of right lesser toe(s) without damage to nail, subsequent encounter; S81.812D Laceration without foreign body, left lower leg, subsequent encounter; S81.811D Laceration without foreign body, right lower leg, subsequent encounter; X58.XXXD Exposure to other specified factors, subsequent encounter; B95.7 Other staphylococcus as the cause of diseases classified elsewhere
CPT/HCPCS: 80053; 82550; 85025; 99213

== ENCOUNTER 2023-02-12 07:42 | Outpatient (CLI) | payer MEDICARE, OTHER, SELFPAY ==
[2023-02-12 08:20] LABS: Blood Urea Nitrogen 38 mg/dL (8-23)
== END 2023-02-12 07:43 | disposition home or self-care (01) ==
LOC: RAD 07:43
PROVIDERS: PCP Family Medicine; Visit Provider Nurse Practitioner Family
DX: Z01.89 Encounter for other specified special examinations (principal)
CPT/HCPCS: 82565; 84520

== ENCOUNTER 2023-02-12 12:59 | Outpatient (CLI) | payer MEDICARE, OTHER, SELFPAY ==
[2023-02-12 13:07] LABS: Basophils # 0.1 10^3/uL (0.0-0.1); Basophils % 1.4 %; Eosinophils # 0.1 10^3/uL (0.0-0.8); Eosinophils % 2.2 %; Hematocrit 35.5 % (37-53); Lymphocytes # 1.4 10^3/uL (0.8-4.8); Lymphocytes % 23.9 %; Mean Corpuscular Hemoglobin 27.4 pg (27-33); Mean Corpuscular Volume 88.5 fl (82-101); Mean Platelet Volume 9.3 fL (7.4-10.4); Monocytes # 0.6 10^3/uL (0.2-0.9); Monocytes % 10.9 %; Neutrophils # 3.58 10^3/uL (1.8-7.7); Neutrophils % 61.1 %; Nucleated Red Blood Cells % 0 %; Platelet Count 351 10^3/cmm (157-399); Red Blood Count 4.01 10^6/uL (3.85-5.65); Red Cell Distribution Width 19.4 % (12.1-15.1); White Blood Count 5.86 10^3/uL (3.29-11.43)
[2023-02-12 13:31] LABS: Alanine Aminotransferase 10 U/L (0-41); Albumin Level 3.2 g/dL (3.5-5.2); Alkaline Phosphatase 92 U/L (40-130); Blood Urea Nitrogen 41 mg/dL (8-23); Calcium 8.8 mg/dL (8.5-10.5); Carbon Dioxide 19 mmol/L (22-29); Chloride 99 mmol/L (98-107); Creatine Phosphokinase 162 U/L (39-308); Globulin 3.1 g/dL (1.3-4.6); Glucose 99 mg/dL (65-115); Osmolality Calculated 286 mOsm/kg (285-295); Sodium 133 mmol/L (136-145); Total Bilirubin 0.2 mg/dL (0.15-1.2); Total Protein 6.3 g/dL (6.6-8.7)
[2023-02-12 13:32] LABS: Anion Gap 19.8 (5-19); Aspartate Amino Transferase 25 U/L (0-40); Potassium 4.8 mmol/L (3.5-5.1)
== END 2023-02-12 13:00 | disposition home or self-care (01) ==
LOC: LAB 12:59
PROVIDERS: PCP Family Medicine; Visit Provider Nurse Practitioner Family
DX: B95.7 Other staphylococcus as the cause of diseases classified elsewhere (principal)
CPT/HCPCS: 80053; 82550; 85025

== ENCOUNTER 2023-02-14 12:59 | Inpatient (IN) | payer MEDICARE, OTHER, SELFPAY ==
[2023-02-14] VITALS (10 sets, daily range): BP systolic 88–124; BP diastolic 50–73; PULSE 69–83; RESP 14–21; TEMP 36.5–36.7; O2SAT 94–100
--- NOTE | 2023-02-14 13:27 | ED_ITS ---
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 He has been having some generalized weakness as well. Associated symptoms: Reports malaise; Deny chest pain, dyspnea, headache(s), nausea, rash or vomiting Review of Systems 2 Const: Reports: fatigue and malaise; Denies: fever(s) or chills Eyes: Denies: eye discomfort ENMT: Denies: throat pain or dental pain Card: Denies: chest pain Resp: Denies: dyspnea GI: Denies: abdominal pain, nausea, vomiting or diarrhea : Denies: urinary frequency Musc: Reports: extremity pain; Denies: neck pain or back pain Skin/Breast: Denies: rash Neuro: Denies: headache(s) PFSH ED 2 PFSH: Medical History Essential hypertension Atrial fibrillation Physical Exam 2 Const: COMMON NORMALS: patient oriented x3 HENMT: COMMON NORMALS: normocephalic and atraumatic HEAD & SCALP: n ormocephalic and atraumatic Eye: COMMON NORMALS: Equal, round and reactive pupils present and EOMs intact bilaterally PUPIL: Yes Equal, round and reactive pupils present Neck/C-Spine: COMMON NORMALS: full ROM and supple Chest: COMMONS NORMALS: normal inspection of the chest and normal palpation of entire chest wall Resp: COMMON NORMALS: normal respiratory effort, No retractions, No use of accessory muscles and clear to auscultation bilaterally AUSCULTATION: clear to auscultation bilaterally Cardio: COMMON NORMALS: regular rate, regular rhythm and No murmurs present (Cardio) RATE: regular rate RHYTHM: regular rhythm GI: COMMON NORMALS: Normal to inspection, nondistended, normoactive bowel sounds present, Soft to palpation, non-tender and no masses PALPATION: Yes Soft to palpation Extremity: COMMON NORMALS: full ROM NARRATIVE EXTREMITY EXAM: Chronic wounds to bilateral legs no severe erythema does have swelling of his feet distal pulses palpable Neuro: COMMON NORMALS: patient oriented x3, moves all extremities and no focal motor deficits Psych: COMMON NORMALS: mental status grossly normal, Normal thought process present and cooperative THOUGHT PROCESS: Normal thought process present Skin: COMMON NORMALS: no rashes or lesions noted GENERAL SKIN EXAM: no rashes or lesions noted Course 2 Vital Signs: Vital signs: Vital Signs Temperature 97.7 F 02/14/23 13:23 Pulse Rate 69 02/14/23 14:38 Respiratory Rate 14 02/14/23 14:38 Blood Pressure 109/61 02/14/23 14:38 Pulse Oximetry 100 02/14/23 14:38 Oxygen Delivery Me thod Room Air 02/14/23 14:38 MDM - General Adult Medical Decision Making Patient presents here with acute on chronic renal failure likely from dehydration patient given IV fluids here spoke to hospitalist will admit at this time. Medical Records I reviewed the patient's medical records. Lab Data I reviewed the patient's lab results. 02/14/23 13:34 02/14/23 13:34 Laboratory Results WBC 6.40 10^3/uL (3.29-11.43) 02/14/23 13:34 RBC 4.10 10^6/uL (3.85-5.65) 02/14/23 13:34 Hgb 11.20 g/dL (11.27-16.99) L 02/14/23 13:34 Hct 35.7 % (37-53) L 02/14/23 13:34 MCV 87.1 fl (82-101) 02/14/23 13:34 MCH 27.3 pg (27-33) 02/14/23 13:34 MCHC 31.4 g/dL (30-55) 02/14/23 13:34 RDW 19.2 % (12.1-15.1) H 02/14/23 13:34 Plt Count 330 10^3/cmm (157-399) 02/14/23 13:34 MPV 8.9 fL (7.4-10.4) 02/14/23 13:34 Neut % (Auto) 66.4 % 02/14/23 13:34 Lymph % (Auto) 19.4 % 02/14/23 13:34 [place] % (Auto) 10.3 % 02/14/23 13:34 Eos % (Auto) 2.0 % 02/14/23 13:34 Baso % (Auto) 1.4 % 02/14/23 13:34 Neut # (Auto) 4.25 10^3/uL (1.8-7.7) 02/14/23 13:34 Lymph # (Auto) 1.2 10^3/uL (0.8-4.8) 02/14/23 13:34 [place] # (Auto) 0.7 10^3/uL (0.2-0.9) 02/14/23 13:34 Eos # (Auto) 0.1 10^3/uL (0.0-0.8) 02/14/23 13:34 Baso # (Auto) 0.1 10^3/uL (0.0-0.1) 02/14/23 13:34 Nucleated RBC % (auto) 0 % 02/14/23 13:34 Nucleated RBCs # 0.0 /100WBC 02/14/23 13:34 Sodium 131 mmol/L (136-145) L 02/14/23 13:34 Potassium 5.0 mmol/L (3.5-5.1) 02/14/23 13:34 Chloride 96 mmol/L (98-107) L 02/14/23 13:34 Carbon Dioxide 16 mmol/L (22-29) L 02/14/23 13:34 Anion Gap 24.0 (5-19) H 02/14/23 13:34 BUN 54 mg/dL (8-23) H 02/14/23 13:34 Creatinine 4.5 mg/dL (0.7-1.2) H 02/14/23 13:34 GFR Calculation Not Reportable 02/14/23 13:34 Glucose 93 mg/dL (65-115) 02/14/23 13:34 Calculated Osmolality 286 mOsm/kg (285-295) 02/14/23 13:34 Calcium 8.8 mg/dL (8.5-10.5) 02/14/23 13:34 Total Bilirubin 0.2 mg/dL (0.15-1.2) 02/14/23 13:34 AST 30 U/L (0-40) 02/14/23 13:34 ALT 13 U/L (0-41) 02/14/23 13:34 Alkaline Phosphatase 100 U/L (40-130) 02/14/23 13:34 Total Protein 6.5 g/dL (6.6-8.7) L 02/14/23 13:34 Albumin 3.4 g/dL (3.5-5.2) L 02/14/23 13:34 Globulin 3.1 g/dL (1.3-4.6) 02/14/23 13:34 Urine Color Yellow (Yellow) 02/14/23 13:55 Urine Appearance Clear (CLEAR) 02/14/23 13:55 Urine pH 5 (5-7) 02/14/23 13:55 Ur Specific Wilkinson 1.025 (1.005-1.030) 02/14/23 13:55 Urine Protein Trace (Negative) 02/14/23 13:55 Urine Glucose (UA) Norm (Normal) 02/14/23 13:55 Urine Ketones Negative (Negative) 02/14/23 13:55 Urine Blood Neg (Negative) 02/14/23 13:55 Urine Nitrate Negative (Negative) 02/14/23 13:55 Urine Bilirubin 1+ (Negative) H 02/14/23 13:55 Urine Urobilinogen Norm mg/dL (Negative) 02/14/23 13:55 Ur Leukocyte Esterase Negative (Negative) 02/14/23 13:55 Urine RBC None /hpf (0-2) 02/14/23 13:55 Urine WBC 0-4 /hpf (0-5) H 02/14/23 13:55 Ur Squamous Epith Cells 0-4 /hpf (0-5) H 02/14/23 13:55 Amorphous Sediment 1+ /hpf 02/14/23 13:55 Urine Bacteria Trace /hpf (NONE) 02/14/23 13:55 No radiology studies performed this visit EKG Data EKG 1: I personally reviewed and interpreted this EKG as follows: EKG interpretation date: 02/14/23 EKG interpretation time: 13:14 Interpretation: afib hr [address] or t wave abnormalities qrs 76 qtc 409 Discharge Plan Discharge Patient Disposition: Admitted As Inpatient Clinical Impression: Acute on chronic kidney failure, Dehydration Condition: Stable Prescriptions: No Action (DME) hydrofera blue ready See Rx Instructions .Route .MEDSUPPLY Qty: 1 0RF Rx Instructions: As directed per included instructions warfarin 4 mg tablet See Rx Instructions .ROUTE .COMPLEX Qty: 30 2RF Dose Instruction: TAKE 1 TABLET BY MOUTH EVERY DAY Rx Instructions: TAKE 1 TABLET BY MOUTH EVERY DAY furosemide 40 mg tablet 40 mg PO DAILY Qty: 30 3RF mupirocin 2 % ointment 1 applic topical BID Qty: 50 3RF lisinopril 5 mg tablet 5 mg PO QAM Qty: 90 0RF tramadol 50 mg tablet 50 mg PO BID PRN (Reason: pain) Qty: 60 0RF meclizine 12.5 mg Tablet 12.5 mg PO TID PRN (Reason: Dizziness) Super Beta Prostate 1 cap PO BID prednisone 5 mg tablet 5 mg PO QAM Anacin 400-32 mg Tablet 2 tab PO Q6H PRN (Reason: Pain) omeprazole 20 mg capsule,delayed release(DR/EC) 20 mg PO DAILY Rx Instructions: TAKE 1 CAPSULE BY MOUTH DAILY Referrals: Major Higginbotham DO [Primary Care Provider] - Coding Level of Care Code 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
[2023-02-14] MEDS: sodium chloride 0.9% 1,000 ML 999 ML IV (13:35)
[2023-02-14 13:40] LABS: Basophils # 0.1 10^3/uL (0.0-0.1); Basophils % 1.4 %; Eosinophils # 0.1 10^3/uL (0.0-0.8); Hematocrit 35.7 % (37-53); Lymphocytes # 1.2 10^3/uL (0.8-4.8); Lymphocytes % 19.4 %; Mean Corpuscular HGB Conc 31.4 g/dL (30-55); Mean Corpuscular Hemoglobin 27.3 pg (27-33); Mean Corpuscular Volume 87.1 fl (82-101); Mean Platelet Volume 8.9 fL (7.4-10.4); Monocytes # 0.7 10^3/uL (0.2-0.9); Monocytes % 10.3 %; Neutrophils # 4.25 10^3/uL (1.8-7.7); Neutrophils % 66.4 %; Nucleated Red Blood Cells % 0 %; Platelet Count 330 10^3/cmm (157-399); Red Cell Distribution Width 19.2 % (12.1-15.1)
[2023-02-14 14:00] LABS: Alanine Aminotransferase 13 U/L (0-41); Albumin Level 3.4 g/dL (3.5-5.2); Alkaline Phosphatase 100 U/L (40-130); Blood Urea Nitrogen 54 mg/dL (8-23); Calcium 8.8 mg/dL (8.5-10.5); Carbon Dioxide 16 mmol/L (22-29); Chloride 96 mmol/L (98-107); Globulin 3.1 g/dL (1.3-4.6); Glucose 93 mg/dL (65-115); Osmolality Calculated 286 mOsm/kg (285-295); Sodium 131 mmol/L (136-145); Total Bilirubin 0.2 mg/dL (0.15-1.2); Total Protein 6.5 g/dL (6.6-8.7)
[2023-02-14 14:04] LABS: Aspartate Amino Transferase 30 U/L (0-40)
[2023-02-14 14:08] LABS: Bilirubin Urine 1+ (Negative); Blood Urine Neg (Negative); Glucose Urine UA Norm (Normal); Ketones Urine Negative (Negative); Leukocyte Esterase Urine Negative (Negative); Nitrate Urine Negative (Negative); Protein Urine Trace (Negative); Specific Gravity, Urine 1.025 (1.005-1.030); Urine Appearance Clear (CLEAR); Urine Color Yellow (Yellow); Urobilinogen Urine Norm (Negative); pH Urine 5 (5-7)
[2023-02-14 14:09] LABS: Add Urine Culture? No; Add Urine Microscopic? YES; Amorphous Sediment Urine 1+ /hpf; Bacteria Urine TRACE /hpf; Squamous Epithelial Cell Urine 0-4 /hpf (0-5); WBC Urine 0-4 /hpf (0-5)
--- NOTE | 2023-02-14 14:47 | PC.PHAR ---
Addendum entered by Andreina Herron 02/14/23 14:51: PTS SON AND STATES DR KHAN PUT HIS PREDNISONE ON HOLD WAS TAKING 5 MG DAILY PTS SON STATES THE PT HASNT TAKEN FOR ABOUT 3 DAYS Original Note: PTS SON AND PTS VERIFIED PTS MEDICATIONS-
[2023-02-14] MEDS: sodium chloride 0.9% 500 ML IV (16:10)
--- NOTE | 2023-02-14 17:15 | ECG_ITS ---
[facility] Test Date: 2023-02-14 Pat Name: Daniel Gibson Department: Room: 255 Gender: Male [employer] Supervisor: : 1935 Requested By: Bonilla Csineros Order Number: [id number] Anuja MD: Fiona Whitaker M.D. Measurements Intervals [place] Rate: 89 P: 0 ND: 0 QRS: -17 QRSD: 76 T: 77 QT: 363 QTc: 444 Interpretive Statements Possible ATRIAL FIBRILLATION Past SEPTAL MYOCARDIAL INFARCTION , PROBABLY OLD [40+ ms Q WAVE IN V1/V2] Compared to ECG 10/12/2022 09:24:16 Heavy baseline artifact; need to repeat Electronically Signed On 02-14-2023 19:51:02 ASSEMBLER FINAL by Fiona Whitaker M.D. [email or web address]
--- NOTE | 2023-02-14 20:18 | P.HP_ITS ---
Providers/Chief Complaint 2 Admitting Physician: Marilee Crenshaw MD Primary Care Provider: Major Higginbotham DO Chief Complaint: cant urinate, open wounds on legs History of Present Illness Daniel iGbson Sr is a 87 yo man w/ b/l Sensorineural hearing loss requiring hearing aids, HTN, Atrial fibrillation, chronic wounds in his legs, a reaction to two tablets of Amlodipine in 08/29/2022, who presented to the ED on 02/14/2023 w/ complaints of poor healing of the wounds in his legs. The patient states that he took 2 tablets of amlodipine on 08/29/2022, and immediately experienced a reaction where both legs swelled up to the tibia. The swelling and resultant edema was so bad that the patient's skin split, later became infected, and developed into ulcers. He said that the wounds were initially treated with peanut and honey, but it did not help his ulcers. Patient states that since then, he has been not been able to bear his own weight on his legs. He especially complains of pain in his legs, that is worse at night. He tells me that during the day, he spends 60% of his day sitting, but when he lies down during the day, he also feels the pain in his legs that he feels at night, but the pain does not feel as bad compared to nights. The pain in his legs feels like a pulled muscle w/ topical and subtopical (below the skin and into the muscle) tenderness. Since August, he has been taking Anacin (high dose Aspirin- Caffeine tablet) 2 tabs of 400mg-32mg q6h prn (~8tabs) about 2 days a week. In the last 3-4 weeks, he has had drainage from the leg. Additional symptoms in the past 3 to 4 weeks, include loss of appetite, poor food & fluid intake, dizziness, lightheadedness, decreased UOP, despite increased urinary urgency. HE tells me that he has venous insufficiency. He had a venous/arterial insufficiency study on 02/12/2023 w/ CT surgeon, Dr. Parra, but he states that Dr. Parra did not feel that he had the renal function to tolerate the arterial portion of the test. He states that he has been seen by different Physicians for the wounds in his legs, namely wound clinic Dr. Mijares, Dr. Parra, & his Tv News Director Dr. Krueger. He states that an arterial US done a month ago showed R. popliteal artery blockage. In the ED, his BP was as low as 88/50 mmHg. He was given 1.5 L of NS. His Cr was ALEJANDRO on ~CKDIII and admitted for an ALEJANDRO on CKD with further management of his wounds. Review of Systems 2 Const: Reports: change in appetite (poor ), change in weight (30lb weight loss), malaise and night sweats (3 times over a period of 5 to 6 months); Denies: fever(s) or chills Eyes: Denies: change in vision or blurry vision ENMT: Reports: nasal discharge, nasal congestion and other (no dysphagia); Denies: ear or mastoid pain Card: Reports: edema, swelling of feet/ankles and lightheadedness; Denies: chest pain or palpitations Resp: Denies: dyspnea, productive cough or wheezing GI: Denies: abdominal pain, nausea, vomiting, diarrhea, constipation, hematochezia or melena : Reports: difficulty urinating, urinary frequency and urinary urgency; Denies: dysuria Musc: Reports: joint pain and other (myalgias) Skin/Breast: Reports: rash, pruritus and skin pain Neuro: Reports: headache(s), seizure-like activity and other (no LOC) Psych: Denies: anxiety, depression, suicidal ideation or homicidal ideation Endo: Reports: cold intolerance Hever/Lymph: Reports: easy bruising and easy bleeding (On Coumadin) Medications/Allergies Home Medications Medication Instructions Recorded Confirmed Last Taken Type hydrofera blue ready #1 ea 07/07/22 02/14/23 Unknown Rx Super Beta Prostate 1 cap PO BID 10/12/22 02/14/23 02/14/23 History aspirin-caffeine 400 mg-32 mg 3 tab PO Q6H PRN Pain 10/12/22 02/14/23 02/03/23 History tablet (Anacin) meclizine 12.5 mg tablet 12.5 mg PO TID PRN Dizziness 10/12/22 02/14/23 02/02/23 History prednisone 5 mg tablet 5 mg PO QAM 10/12/22 02/14/23 3 Days Ago History ~02/11/23 SEE PHARMACY COMMENT lisinopril 5 mg tablet 5 mg PO QAM bp #90 tabs 01/15/23 02/14/23 02/14/23 Rx tramadol 50 mg tablet 50 mg PO BID PRN pain #60 tabs 02/01/23 02/14/23 02/03/23 Rx omeprazole 20 mg capsule,delayed 20 mg PO QAM 02/04/23 02/14/23 02/14/23 History release daptomycin 500 mg intravenous See Rx Instructions .Route .COMPLEX 02/14/23 02/14/23 02/14/23 12:00 History solution furosemide 40 mg tablet 40 mg PO QAM edema 02/14/23 02/14/23 02/14/23 History warfarin 3 mg tablet 3 mg PO QAM 02/14/23 02/14/23 02/14/23 History Allergies Allergy/AdvReac Type Severity Reaction Status Date / Time codeine Allergy Severe Unconscious Verified 02/14/23 13:32 morphine Allergy Severe Unconscious Verified 02/14/23 13:32 tramadol Allergy Intermediate ADR-Dizzine Verified 02/14/23 13:32 ss amlodipine Allergy swelling Verified 02/14/23 13:32 ranitidine AdvReac Mild sedation, Verified 02/14/23 13:32 nausea PFSH Acute 2 PFSH: Medical History (Updated 02/15/23 @ 02:49 by Marilee Crenshaw MD) Essential hypertension Atrial fibrillation Surgical History (Updated 02/14/23 @ 20:58 by Marilee Crenshaw MD) Clavicle fracture R. clavicle surgery H/O: knee surgery Left knee cartilage surgery H/O shoulder replacement Left shoulder. History of total right knee replacement Family History (Updated 02/14/23 @ 20:59 by Marilee Crenshaw MD) Mother Cancer Pancreatic cancer Father Cancer colon cancer Social History (Updated 02/14/23 @ 20:59 by Marilee Crenshaw MD) Smoking and tobacco/nicotine status: never used tobacco/nicotine Alcohol intake: never Vitals/I&O/Wt Last Vital Signs Temp 98.1 F 02/14/23 19:32 Pulse 75 02/14/23 19:32 Resp 16 02/14/23 19:32 BP 94/59 02/14/23 19:32 Pulse Ox 95 02/14/23 19:32 O2 Del Method Room Air 02/14/23 19:32 02/14/23 02/14/23 02/14/23 06:59 14:59 22:59 Intake Total 1500 / 1500 Balance 1500 / 1500 Weight last 48 hrs Weight 68.946 kg Physical Exam 2 Const: GENERAL APPEARANCE: cooperative; not comfortable ORIENTATION/CONSCIOUSNESS: Yes awake, Yes oriented to person, Yes oriented to place and Yes oriented to time HENMT: HEAD & SCALP: normocephalic and atraumatic EXTERNAL EAR: Yes external ears normal MOUTH: Normal oral and palatal mucosa present THROAT: posterior oropharynx normal Eye: CONJUNCTIVA: Yes conjunctivae normal PUPIL: Yes Equal, round and reactive pupils present EOM: No EOM abnormal Neck/C-Spine: GENERAL: Yes normal visual inspection and Yes trachea midline THYROID: Thyroid normal CAROTIDS: No bruit Lymph: LYMPHATIC: No lymphadenopathy Resp: OTHER: CTAB with no wheezes rales or rhonchi Cardio: OTHER: Regular rate and rhythm, no murmurs, no rubs, no gallops or clicks. It was difficult to appreciate carotid bruits due to his respirations. I was able to appreciate dorsalis pedis pulses on both feet with hand-held Dopplers. GI: AUSCULTATION: Yes normoactive bowel sounds PALPATION: Yes Soft to palpation, No Tenderness to palpation present (GI), No Guarding due to palpation present (GI), No Rigid due to palpation and No No hepatosplenomegaly present Extremity: NARRATIVE EXTREMITY EXAM: Mildly cyanotic R. foot that was cool to touch. R. 2nd toe concerning for gangrene. GENERAL: No clubbing, Yes cyanosis (R. foot) and Yes edema Neuro: SENSORIUM/ORIENTATION: Yes alert, Yes oriented to person and Yes oriented to place CRANIAL NERVES: Yes CN normal except as noted SPEECH: s peech normal MOTOR EXAM: 5/5 motor strength present throughout Psych: APPEARANCE: Yes grossly normal ATTITUDE: Yes calm and Yes engaged ACTIVITY/MOTOR BEHAVIOR: Yes appropriate eye contact SPEECH: Yes normal speech MOOD & AFFECT: Yes euthymic mood THOUGHT PROCESS: Normal thought process present THOUGHT CONTENT: Yes Normal thought content present A TTENTION/CONCENTRATION: Yes attention grossly intact MEMORY/COGNITION: Yes memory grossly intact Skin: NARRATIVE SKIN EXAM: chronic ulcers w/ eschars on the b/l lower extremity. Urinary Catheter Management: Liriano: Cath Placed During This Visit: yes Urinary Catheter Date of Insertion: 02/14/23 Urinary Catheter Time of Insertion: 19:51 Data 02/14/23 13:34 02/14/23 13:34 A&P Assessment and plan (1) Acute on chronic kidney failure: Qualifiers: Acute renal failure type: unspecified Chronic kidney disease stage: u nspecified stage Qualified Code(s): N17.9 - Acute kidney failure, unspecified; N18.9 - Chronic kidney disease, unspecified (2) Dehydration: (3) Atrial fibrillation: Qualifiers: Atrial fibrillation type: unspecified Qualified Code(s): I48.91 - Unspecified atrial fibrillation (4) Dyspnea on exertion: (5) Skin ulceration: Qualifiers: Non-pressure ulcer stage: unspecified non-pressure ulcer stage Qualified Code(s): L98.499 - Non-pressure chronic ulcer of skin of other sites with unspecified severity Plan Daniel Gibson Sr is a 87 yo man w/ b/l Sensorineural hearing loss requiring hearing aids, HTN, Atrial fibrillation, chronic wounds in his legs, a reaction to two tablets of Amlodipine in 08/29/2022, who presented to the ED on 02/14/2023 w/ complaints of poor healing of the wounds in his legs. In the ED, his BP was as low as 88/50 mmHg. He was given 1.5 L of NS. His Cr was ALEJANDRO on ~CKDIII and admitted for an ALEJANDRO on CKD with further management of his wounds. #Chronic wound ulcers w/ Eschar: - Given his story, I wonder about hypersensivity vasculitis as a possible etiology, Pyoderma gangeronosum, vascular lesions due to PAD, or malignancy - Will order a b/l LE arterial US. He may need a biopsy to evaluate for a hypersensitivity vasculitis such as pyoderma gangrenosum. - He is on Daptomycin started at the wound clinic. [facility] care helps with the administration of his Daptomycin. The next dose of Daptomycin is due on 02/16/2023 at noon. #ALEJANDRO on CKDIII - Possibly caused by the high dose of NSAIDS. - Started H2O at 65cc/hr - Ordered US of the kidney. #Hyponatremia: Likely due to hypervolemia. Ordered Urine studies. Continue NS at 65/hr w/ strict Is & Os. #Hypotension - Improved w/ H2O. Continue to monitor. Hold all hypertensives. #Afib: No indication that he is in Afib w/ RVR. Started full dose Lovenox DVT ppx: On Lovenox Attestations 2 Medical Necessity Statement*: Patient's hospitalization will require greater than 2 nights stay. Coding Level of Care Code 53969 Diagnoses Acute on chronic kidney failure N17.9; N18.9 Acute renal failure type: unspecified Chronic kidney disease stage: unspecified stage Dehydration E86.0 Atrial fibrillation, unspecified type I48.91 Atrial fibrillation type: unspecified Dyspnea on exertion R06.09 Skin ulcer, unspecified ulcer stage L98.499 Non-pressure ulcer stage: unspecified non-pressure ulcer stage Time Spent (min) 110 Comment Time spent on interviewing the patient and family, chart review, exam, lab/image reviews.
[2023-02-14] MEDS: sodium chloride 0.9% 1,000 ML 65 ML IV (23:30)
[2023-02-14] MEDS: enoxaparin 30 mg/0.3 mL Syringe SUBCUT (23:30)
[2023-02-15] VITALS (7 sets, daily range): BP systolic 90–121; BP diastolic 56–79; PULSE 61–108; RESP 13–18; TEMP 36.4–37.1; O2SAT 93–98
[2023-02-15 05:15] LABS: Urine Creatinine 71 mg/dL (39-259); Urine Random Sodium 106 mmol/L
[2023-02-15] MEDS: methocarbamol 500 mg Tablet PO ×2 (05:25→11:19)
--- NOTE | 2023-02-15 08:00 | USCV_ITS ---
PaigeDaniel Age: 87 Gender: M : 1935 Exam Date: 02/15/2023 12:41 Ordering Phys: Marilee Crenshaw MD Technologist: Exam Location: [facility] [place] Indication: bilat leg ulcers Risk Factors: Previous Vascular Surgery: RIGHT LEFT BP: 135.0 / 80.00 BP: 135.0/ 80.00 0 0 Waveform Velocity (cm/s) Velocity (cm/s) Waveform Triphasic 57.5 Iliac Prox 66.0 Triphasic Triphasic 52.0 Iliac Mid 74.6 Triphasic Triphasic 59.0 Iliac Distal 80.0 Triphasic Triphasic 64.5 HALAL BUTCHER 73.0 Triphasic Triphasic 57.5 SFA Prox 54.4 Triphasic Triphasic 56.7 SFA Mid 64.5 Triphasic Triphasic SFA Dist Triphasic 69.1 59.8 Triphasic 58.3 POP 69.9 Triphasic Monophasic 54.0 CAR DELIVERER 55.2 Monophasic Monophasic 55.2 DPA 69.9 Monophasic 0.6 YOVANI 0.6 FINDINGS Resting YOVANI 0.6 bilaterally. Normal triphasic Doppler waveforms in the iliac, femoral and popliteal vessels bilaterally. Monophasic and continuous waveforms in the infrapopliteal vessels bilaterally Mild diffuse plaque in the iliac and femoral arteries bilaterally CONCLUSIONS 1. Abnormal resting ABIs bilaterally because, suggesting moderate peripheral artery disease 2. Abnormal artery Doppler waveforms in the infrapopliteal vessels, may suggest infrapopliteal occlusion with collateral circulation in these vessels. Compared to the study from 01/28/2023, the posterior tibial and dorsalis pedis arteries were found to be patent in the current study Dr Fiona Whitaker MD [facility] (Electronically Signed) Final Date: 16 February 2023 10:07 S
--- NOTE | 2023-02-15 08:00 | US_ITS ---
WS: [id number] RENAL ULTRASOUND HISTORY: ALEJANDRO COMPARISON: None available. TECHNIQUE: 2-D and color Doppler imaging of the kidney submitted. Right kidney: 9.3 cm x 4.0 cm x 4.4 cm. Cortex: 1.1 cm Increased echogenicity. Poorly visualized kidney due to body habitus. There is a complex cystic mass superior pole measuring 3.4 x 3.5 x 3.3 cm. No hydronephrosis. Left kidney: 10.8 cm x 5.9 cm x 5.7 cm. Cortex: 1.4 cm Normal size kidney. There are 2 hypodense masses most likely cysts. The largest in the inferior pole measures 3.6 x 3.2 x 3.0 cm. No obstruction. Aorta: Normal. Urinary Bladder: Nondistended. Liriano catheter present. IMPRESSION: 1. Bilateral low-attenuation masses involving each kidney. These are probably cysts but difficult to completely characterize due to body habitus. 2. No obstruction.
[2023-02-15] MEDS: pantoprazole DR 40 mg Tablet PO (08:07)
[2023-02-15] MEDS: docusate sodium 100 mg Capsule PO ×2 (08:07→16:36)
[2023-02-15 11:19] LABS: Basophils # 0.1 10^3/uL (0.0-0.1); Basophils % 1.1 %; Eosinophils # 0.1 10^3/uL (0.0-0.8); Eosinophils % 0.7 %; Hematocrit 34.6 % (37-53); Lymphocytes # 0.8 10^3/uL (0.8-4.8); Lymphocytes % 9.3 %; Mean Corpuscular HGB Conc 30.9 g/dL (30-55); Mean Corpuscular Hemoglobin 27.3 pg (27-33); Mean Corpuscular Volume 88.3 fl (82-101); Mean Platelet Volume 8.8 fL (7.4-10.4); Monocytes # 0.8 10^3/uL (0.2-0.9); Monocytes % 9.4 %; Neutrophils # 7.06 10^3/uL (1.8-7.7); Neutrophils % 79.2 %; Nucleated Red Blood Cells % 0 %; Platelet Count 280 10^3/cmm (157-399); Red Blood Count 3.92 10^6/uL (3.85-5.65); Red Cell Distribution Width 19.5 % (12.1-15.1); White Blood Count 8.92 10^3/uL (3.29-11.43)
[2023-02-15 11:38] LABS: Partial Thromboplastin Time 86.6 SECONDS (23.9-36.7)
[2023-02-15 11:41] LABS: INR 5.54 (0.8-1.2)
[2023-02-15 11:50] LABS: Alanine Aminotransferase 11 U/L (0-41); Albumin Level 2.6 g/dL (3.5-5.2); Alkaline Phosphatase 112 U/L (40-130); Anion Gap 19.6 (5-19); Aspartate Amino Transferase 27 U/L (0-40); Blood Urea Nitrogen 49 mg/dL (8-23); Calcium 8.1 mg/dL (8.5-10.5); Carbon Dioxide 17 mmol/L (22-29); Chloride 104 mmol/L (98-107); Globulin 3.2 g/dL (1.3-4.6); Glucose 97 mg/dL (65-115); Magnesium 1.8 mg/dL (1.7-2.3); Osmolality Calculated 295 mOsm/kg (285-295); Phosphorus 3.1 mg/dL (2.5-4.5); Potassium 4.6 mmol/L (3.5-5.1); Sodium 136 mmol/L (136-145); Total Bilirubin 0.2 mg/dL (0.15-1.2); Total Protein 5.8 g/dL (6.6-8.7)
[2023-02-15] MEDS: sodium chloride 0.9% 1,000 ML 65 ML IV (13:10)
--- NOTE | 2023-02-15 14:56 | PM.PN ---
Subjective Subjective: Denies pain in legs when I first visit with him. He had methocarbamol 2 hours prior. and one son at bedside. The concern is no definitive diagnosis. ABX have not improved condition and infact overall his is worsening as far as ADL's mobility nutrition. We discussed SNF placement and family agreeable. Vitals/I&O/Wt Last Vital Signs Temp 98.1 F 02/15/23 08:00 Pulse 74 02/15/23 11:28 Resp 17 02/15/23 11:28 BP 117/69 02/15/23 11:28 Pulse Ox 93 02/15/23 11:28 O2 Del Method Room Air 02/15/23 11:28 02/14/23 02/15/23 02/15/23 22:59 06:59 14:59 Intake Total 1500 / 1500 1008.333 / 1008.333 Output Total 500 / 500 400 / 900 Balance 1000 / 1000 -400 / 600 1008.333 / 1008.333 Weight last 48 hrs Weight 75.381 kg Weight 68.946 kg Physical Exam Narrative: Patient falls asleep easily. It seems to be due to medication. Otherwise he is denying pain while on this medication Heart regular normal S1-S2 without murmurs clicks gallops or rubs Lungs clear without wheezes rales or rhonchi Abdomen soft nontender nondistended positive bowel sounds Extremities: Multiple large eschar regions bilateral lower extremities the right lower extremity is more swollen than the left particularly in the foot itself. Palpable left DP pulses felt unable on the right due to edema. There are also some blisters forming on the posterior aspect of his legs. Urinary Catheter Management: Liriano: Cath Placed During This Visit: yes Reason for Continuing Indwelling Catheter: Accurate Measurement of Urinary Output in Critically Ill Patients Urinary Catheter Date of Insertion: 02/14/23 Urinary Catheter Time of Insertion: 19:51 Data 02/15/23 10:27 02/15/23 10:27 A&P Assessment and plan (1) Acute on chronic kidney failure: Qualifiers: Acute renal failure type: unspecified Chronic kidney disease stage: unspecified stage Qualified Code(s): N17.9 - Acute kidney failure, unspecified; N18.9 - Chronic kidney disease, unspecified (2) Dehydration: (3) Atrial fibrillation: Qualifiers: Atrial fibrillation type: unspecified Qualified Code(s): I48.91 - Unspecified atrial fibrillation (4) Dyspnea on exertion: (5) Skin ulceration: Qualifiers: Non-pressure ulcer stage: unspecified non-pressure ulcer stage Qualified Code(s): L98.499 - Non-pressure chronic ulcer of skin of other sites with unspecified severity (6) Protein calorie malnutrition: Celine Gibson Sr is a 87 yo man w/ b/l Sensorineural hearing loss requiring hearing aids, HTN, Atrial fibrillation, chronic wounds in his legs, a reaction to two tablets of Amlodipine in 08/29/2022, who presented to the ED on 02/14/2023 w/ complaints of poor healing of the wounds in his legs. In the ED, his BP was as low as 88/50 mmHg. He was given 1.5 L of NS. His Cr was ALEJANDRO on ~CKDIII and admitted for an ALEJANDRO on CKD with further management of his wounds. He also takes Lasix and lisinopril at home. These are on hold. #Chronic wound ulcers w/ Eschar: -Unknown etiology. Probable peripheral artery disease. Discussed with Dr. Parra at the wound clinic. He will perform skin biopsy tomorrow at the bedside. While his INR is 5.5 a tiny biopsy should not cause bleeding I will give low-dose vitamin K tonight and hold anticoagulation. -Once his creatinine clearance is improved to baseline I would recommend angiogram for possible intervention of peripheral artery disease at time of diagnosis. He could be hydrated with fluids per 24 hours prior and 48 hours after to prevent dye induced nephrotoxicity - He is on Daptomycin started at the wound clinic. [facility] care helps with the administration of his Daptomycin. The last dose of Daptomycin is due on 02/16/2023 at noon and this is ordered. #ALEJANDRO on CKDIII - Possibly caused by the high dose of NSAIDS. -Increase normal saline to 100 cc an hour - Ordered US of the kidney-pending #Hyponatremia: Likely due to hypovolemia. Normal saline at 100 cc an hour #Hypotension - Improved w/ H2O. Continue to monitor. Hold all hypertensives. #Afib: No indication that he is in Afib w/ RVR. Hold anticoagulation at this time. # Pain control per family the only medication that has worked was Anacin. However this is on hold due to kidney dysfunction. Will restart tramadol at 100 mg every 6 hours scheduled and Tylenol 650 mg every 6 hours scheduled Discharge planning will get case management for likely SNF placement Attestations Medical Necessity Statement*: Patient's hospitalization will require greater than 2 nights stay for diagnosis and treatment of his lower extremity wounds. Coding Level of Care Code Acute Code for [facility] Fwd Diagnoses Acute on chronic kidney failure N17.9; N18.9 Acute renal failure type: unspecified Chronic kidney disease stage: unspecified stage Dehydration E86.0 Atrial fibrillation, unspecified type I48.91 Atrial fibrillation type: unspecified Dyspnea on exertion R06.09 Skin ulcer, unspecified ulcer stage L98.499 Non-pressure ulcer stage: unspecified non-pressure ulcer stage Protein calorie malnutrition E46
[2023-02-15] MEDS: TRAMadol 50 mg Tablet 100 MG PO ×2 (15:28→20:14)
[2023-02-15] MEDS: acetaminophen 325 mg Tablet 650 MG PO ×2 (15:28→20:14)
[2023-02-15] MEDS: phytonadione (ADULT) 10 mg/mL Ampule 1 mL 2.5 MG PO ×2 (15:28→22:18)
[2023-02-15] MEDS: sennosides 8.6 mg Tablet 17.2 MG PO (20:14)
[2023-02-15 21:51] LABS: INR 3.89 (0.8-1.2)
--- NOTE | 2023-02-15 22:24 | CTR_ITS ---
PROCEDURE INFORMATION: Exam: CT Head Without Contrast Exam date and time: 02/15/2023 10:36 PM Age: 87 years old Clinical indication: Alteration of consciousness; Other: Unk; Patient HX: Patient seemed alert and could follow directions fine; Additional info: Confusion TECHNIQUE: Imaging protocol: Computed tomography of the head without contrast. Radiation optimization: All CT scans at this facility use at least one of these dose optimization techniques: automated exposure control; mA and/or kV adjustment per patient size (includes targeted exams where dose is matched to clinical indication); or iterative reconstruction. REPORTING DATA: Count of CT and Cardiac NM exams in prior 12 months: This patient has received 2 known CTs and 0 known cardiac nuclear medicine studies in the 12 months prior to the current study. COMPARISON: No relevant prior studies available. RADIATION DOSE METRICS: Total DLP (mGy-cm): 1150.7 FINDINGS: Brain: Moderate diffuse white matter disease likely reflecting chronic microvascular ischemic changes. Right caudate nucleus chronic lacunar infarct. Cerebral ventricles: No ventriculomegaly. Paranasal sinuses: Visualized sinuses are unremarkable. No fluid levels. Mastoid air cells: Visualized mastoid air cells are well aerated. Bones/joints: Unremarkable. No acute fracture. Soft tissues: Unremarkable. CT/CT head wo con* [id number] IMPRESSION: 1. Negative for intracranial hemorrhage or mass effect. 2. Moderate diffuse white matter disease likely reflecting chronic microvascular ischemic changes. 3. Right caudate nucleus chronic lacunar infarct.
--- NOTE | 2023-02-15 22:38 | PC.NURSE ---
This nurse entered patient room and patient appeared to be rambling and mumbling his words. This nurse was not able to understand the patients speech. This nurse asked the patient for his name and and patient was slow with response but answered appropriately. This nurse contacted regarding the patients behavior and this nurse was given verbal orders for patient to receive a head CT and an ABG to be drawn. Patient currently downstairs receiving head CT.
[2023-02-15] MEDS: sodium chloride 0.9% 1,000 ML 100 ML IV (23:31)
[2023-02-16] VITALS (8 sets, daily range): BP systolic 101–122; BP diastolic 61–73; PULSE 66–86; RESP 16–20; TEMP 36.4–37; O2SAT 91–99
[2023-02-16 00:01] LABS: ABG PCO2 31.9 mmHg (35-45); ABG PH Result 7.35 (7.35-7.45); Arterial Blood Gas Hematocrit 40.3 % (42-52); Blood Gas Sample Type Arterial; HCO3 ABG 17.6 mmol/L (22-26); PO2 ABG 94.5 mmHg (80.0-100.0)
[2023-02-16 00:03] LABS: Blood Gas Operator Identificat JB; Blood Gas Sample Site Brachial, right; Oxygen Device NC
[2023-02-16] MEDS: diazePAM 5 mg Tablet PO (00:24)
[2023-02-16] MEDS: TRAMadol 50 mg Tablet 100 MG PO ×4 (02:27→20:32)
[2023-02-16] MEDS: acetaminophen 325 mg Tablet 650 MG PO ×4 (02:27→20:33)
[2023-02-16 04:29] LABS: Basophils # 0.1 10^3/uL (0.0-0.1); Basophils % 1.3 %; Eosinophils # 0.2 10^3/uL (0.0-0.8); Eosinophils % 2.8 %; Hematocrit 32.6 % (37-53); Lymphocytes # 1.1 10^3/uL (0.8-4.8); Lymphocytes % 16.6 %; Mean Corpuscular HGB Conc 31.3 g/dL (30-55); Mean Corpuscular Hemoglobin 27.8 pg (27-33); Mean Corpuscular Volume 88.8 fl (82-101); Mean Platelet Volume 8.8 fL (7.4-10.4); Monocytes # 0.6 10^3/uL (0.2-0.9); Monocytes % 8.8 %; Neutrophils # 4.49 10^3/uL (1.8-7.7); Neutrophils % 70.2 %; Nucleated Red Blood Cells % 0 %; Platelet Count 274 10^3/cmm (157-399); Red Blood Count 3.67 10^6/uL (3.85-5.65); Red Cell Distribution Width 19.2 % (12.1-15.1); White Blood Count 6.39 10^3/uL (3.29-11.43)
[2023-02-16 04:40] LABS: INR 2.69 (0.8-1.2)
[2023-02-16 04:48] LABS: Troponin T (5th) Once 66 ng/L (0-15)
[2023-02-16 04:51] LABS: Ammonia 29 umol/L (16-60); Anion Gap 15.3 (5-19); Blood Urea Nitrogen 43 mg/dL (8-23); Calcium 8.1 mg/dL (8.5-10.5); Carbon Dioxide 19 mmol/L (22-29); Chloride 104 mmol/L (98-107); Glucose 87 mg/dL (65-115); Osmolality Calculated 288 mOsm/kg (285-295); Potassium 4.3 mmol/L (3.5-5.1); Sodium 134 mmol/L (136-145)
[2023-02-16 04:54] LABS: Lactate (Lactic Acid level) 0.7 mmol/L (0.5-2.2)
[2023-02-16] MEDS: lidocaine 1% INJ 20 mL INTRADERMA (05:51)
--- NOTE | 2023-02-16 05:59 | P.CONIM_ITS ---
Providers/Reason For Consult 2 Consulting Physician/Specialty*: Dr. Parra/wound care services Reason for Consult*: Skin necrosis lower extremities Requesting Physician: Dr. Barroso Attending Physician: Suzy Reeves MD Primary Care Provider: Major Higginbotham DO History of Present Illness History of Present Illness Daniel Gibson Sr is a 87 year old male whom we saw originally in wound care services on December 25. He was referred for acute necrosis of areas of his skin in the lower extremities bilaterally following acute edema after receiving amlodipine within 2 days after receiving his initial dose on August 29. There was obviously full-thickness skin necrosis in several areas. Wounds were treated locally per protocol. As part of his continued evaluation we obtained arterial duplex study on January 28. This study revealed: Diffuse atherosclerotic plaque throughout the right and left proximal lower extremities. No hemodynamically significant stenosis in the right lower extremity. Moderate stenosis of the left popliteal artery. We also obtained a venous duplex study on February 02. This study revealed: No evidence of DVT in the above-mentioned identifiable veins. 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 No significant venous reflux either in the deep or in the superficial veins He was hospitalized on February 14 after presenting with acute renal injury with a BUN of 54 and a creatinine of 4.5. He has a history for hypertension and atrial fibrillation. He was moderately hypotensive upon presentation and received 1-1/2 L of saline. I was consulted related to his leg wounds. He was originally scheduled to be seen by dermatology on outpatient basis. I recommended proceeding with a skin biopsy in an area which is near but not involving the full thickness skin necrosis. I have recommended after examination, to proceed with this on the medial aspect of the right leg. Review of Systems 2 Const: Reports: fatigue and malaise; Denies: fever(s), chills or night sweats Card: Reports: palpitations; Denies: chest pain Resp: Reports: dyspnea; Denies: hemoptysis GI: Denies: abdominal pain or coffee ground emesis Neuro: Reports: headache(s) and weakness in extremities; Denies: vertigo or confusion Hever/Lymph: Reports: easy bruising Medications/Allergies Home Medications Medication Instructions Recorded Confirmed Last Taken Type hydrofera blue ready #1 ea 07/07/22 02/14/23 Unknown Rx Super Beta Prostate 1 cap PO BID 10/12/22 02/14/23 02/14/23 History aspirin-caffeine 400 mg-32 mg 3 tab PO Q6H PRN Pain 10/12/22 02/14/23 02/03/23 History tablet (Anacin) meclizine 12.5 mg tablet 12.5 mg PO TID PRN Dizziness 10/12/22 02/14/23 02/02/23 History prednisone 5 mg tablet 5 mg PO QAM 10/12/22 02/14/23 3 Days Ago History ~02/11/23 SEE PHARMACY COMMENT lisinopril 5 mg tablet 5 mg PO QAM bp #90 tabs 01/15/23 02/14/23 02/14/23 Rx tramadol 50 mg tablet 50 mg PO BID PRN pain #60 tabs 02/01/23 02/14/23 02/03/23 Rx omeprazole 20 mg capsule,delayed 20 mg PO QAM 02/04/23 02/14/23 02/14/23 History release daptomycin 500 mg intravenous See Rx Instructions .Route .COMPLEX 02/14/23 02/14/23 02/14/23 12:00 History solution furosemide 40 mg tablet 40 mg PO QAM edema 02/14/23 02/14/23 02/14/23 History warfarin 3 mg tablet 3 mg PO QAM 02/14/23 02/14/23 02/14/23 History Allergies Allergy/AdvReac Type Severity Reaction Status Date / Time codeine Allergy Severe Unconscious Verified 02/14/23 13:32 morphine Allergy Severe Unconscious Verified 02/14/23 13:32 tramadol Allergy Intermediate ADR-Dizzine Verified 02/14/23 13:32 ss amlodipine Allergy swelling Verified 02/14/23 13:32 ranitidine AdvReac Mild sedation, Verified 02/14/23 13:32 nausea Current Medications Generic Name Dose Route Start Last Admin Trade Name Freq PRN Reason Stop Dose Admin Acetaminophen 650 mg 02/15/23 15:00 02/16/23 02:27 Acetaminophen 325 Mg Tablet PO 650 mg Q6H COCO Administration Diazepam 5 mg 02/15/23 14:54 02/16/23 00:24 Diazepam 5 Mg Tablet PO 5 mg Q8H PRN Administration ANXIETY Docusate Sodium 100 mg 02/15/23 09:00 02/15/23 16:36 Docusate Sodium 100 Mg Capsule PO 100 mg BID COCO Administration Sodium Chloride 1,000 mls @ 100 mls/hr 02/14/23 23:00 02/15/23 23:31 Sodium Chloride 0.9% IV 100 mls/hr .Q10H COCO Administration Lidocaine HCl 20 ml 02/15/23 16:49 02/16/23 05:51 Lidocaine 1% Inj 20 Ml INTRADERMA 20 ml PRN PRN Administration bedside procedure Senna 17.2 mg 02/15/23 21:00 02/15/23 20:14 Sennosides 8.6 Mg Tablet PO 17.2 mg BEDTIME COCO Administration Tramadol HCl 100 mg 02/15/23 15:00 02/16/23 02:27 Tramadol 50 Mg Tablet PO 100 mg Q6H COCO Administration PFSH Acute 2 PFSH: Medical History Essential hypertension Atrial fibrillation Surgical History Clavicle fracture R. clavicle surgery H/O: knee surgery Left knee cartilage surgery H/O shoulder replacement Left shoulder. History of total right knee replacement Family History Mother Cancer Pancreatic cancer Father Cancer colon cancer Social History Smoking and tobacco/nicotine status: never used tobacco/nicotine Alcohol intake: never Vitals/I&O/Wt Last Vital Signs Temp 98.6 F 02/16/23 04:32 Pulse 76 02/16/23 04:32 Resp 17 02/16/23 04:32 BP 117/61 02/16/23 04:32 Pulse Ox 99 02/16/23 04:32 O2 Del Method Room Air 02/15/23 11:28 02/15/23 02/15/23 02/16/23 14:59 22:59 06:59 Intake Total 1008.333 / 1008.333 300 / 1308.333 792.75 / 2101.083 Output Total 700 / 700 300 / 1000 Balance 1008.333 / 1008.333 -400 / 608.333 492.75 / 1101.083 Weight last 48 hrs Weight 166 lb 3 oz Weight 166 lb 3 oz Weight 152 lb Physical Exam 2 Const: COMMON NORMALS: no acute distress, average body habitus, patient oriented x3 and alert HENMT: COMMON NORMALS: normocephalic and atraumatic HEAD & SCALP: n ormocephalic and atraumatic Eye: COMMON NORMALS: Equal, round and reactive pupils present and no scleral icterus PUPIL: Yes Equal, round and reactive pupils present Neck/C-Spine: COMMON NORMALS: No carotid bruits; negative for full ROM Chest: COMMONS NORMALS: normal palpation of entire chest wall Resp: COMMON NORMALS: normal respiratory effort Cardio: RHYTHM: abnormal rhythm irregularly irregular GI: COMMON NORMALS: Normal to inspection, nondistended, normoactive bowel sounds present : OTHER: Liriano catheter in place Extremity: NARRATIVE EXTREMITY EXAM: There are areas of eschar what appears to be full thickness skin necrosis in the pretibial regions and medially bilaterally and slightly posterior on the left. There are violaceous TG eschared areas as well. Neuro: COMMON NORMALS: patient oriented x3, no focal motor deficits and no sensory deficits noted SENSORIUM/ORIENTATION: Yes alert Urinary Catheter Management: Liriano: Cath Placed During This Visit: yes Reason for Continuing Indwelling Catheter: Acute Urinary Retention or Obstruction Urinary Catheter Date of Insertion: 02/14/23 Urinary Catheter Time of Insertion: 19:51 Data 02/16/23 04:21 02/16/23 04:21 A&P Assessment and plan (1) Cellulitis: As part of continued evaluation for his presentation and bilateral lower extremity lesions, we have recommended skin biopsy. Rationale for this was carefully discussed with Mr. Arreguin that he is in agreement. After examination, I will recommend a biopsy near but not involving the full-thickness skin necrosis the medial aspect of the right lower extremity. Details of risk the procedure were discussed. Appropriate consents were signed. I note that his INR is 2.69 this morning. We did discuss that there may be bleeding post procedure and we we will utilize pressure and topical agents if required. Qualifiers: Site of cellulitis: extremity Site of cellulitis of extremity: lower extremity Laterality: left Qualified Code(s): L03.116 - Cellulitis of left lower limb Consult Attestations 2 Medical Necessity Statement: Bilateral lower extremity full-thickness skin necrosis of undetermined etiology. Coding Level of Care Code Acute Code for [facility] Diagnoses Cellulitis of left lower extremity L03.116 Site of cellulitis: extremity Site of cellulitis of extremity: lower extremity Laterality: left
--- NOTE | 2023-02-16 06:09 | PC.NURSE ---
This nurse assisted with bedside biopsy of RLE. Extremity biopsy site dressed with 4x4 gauze wrapped with ROGERS bandage. Patient tolerated Well.
--- NOTE | 2023-02-16 06:11 | PM.OP ---
Operative Report Date of procedure: February 16, 2023 Pre-op diagnosis: Eschared regions with skin necrosis of the lower extremities Post-op diagnosis: same Procedure done: 4 mm punch biopsy Specimens removed/disposition: 4 mm punch biopsy x 1/placed in formalin for pathology review Surgeon: Adrian Parra MD Anesthesia: Local Estimated blood loss (mL): 2 Complications: None Condition: stable Brief History: Mr. Gibson is an 87-year-old gentleman with full-thickness skin necrosis in various areas of the lower extremities bilaterally of undetermined etiology but appeared to have occurred after administration of amlodipine in August with acute lower extremity edema. Procedure: Appropriate consent was reviewed with Mr. Gibson and signed. Medial aspect of his right lower extremity was sterilely prepped and draped utilizing Betadine and sterile drapes. 1% lidocaine was infiltrated in the medial aspect of the right lower extremity. 4 mm punch biopsy utilized with intake of full-thickness biopsy of the skin which was then placed in formalin. Bleeding was controlled with pressure. Sterile dressing and Cooper bandage was applied. He tolerated procedure well.
[2023-02-16] MEDS: HYDROmorphone 1 mg/mL INJ 1 mL 0.5 MG IVP ×2 (06:57→18:59)
[2023-02-16] MEDS: duloxetine 30 mg Capsule PO (08:30)
[2023-02-16] MEDS: docusate sodium 100 mg Capsule PO ×2 (08:30→17:01)
--- NOTE | 2023-02-16 09:11 | PC.CHAP ---
Pastoral Care Encounter/Spiritual Assessment Type of Contact [] Declined manager safe visit [] Patient/Family/Request visit [] Outpatient visit [] Follow-up visit [] Physician referral [] Code/Alert [x] Routine visit [] Staff referral [] Actively dying [] Patient sleeping [x] Family support [] [] Out of room [] Palliative care [] [] Receiving care in room [] Pre-surgical visit [] Trauma [] Long length of stay [] ICU visit [] Other: Relational/Emotional Strength [x] Patient feels connected with others/family/visitors/staff [x] Distress [] Loneliness/isolation [] Abandonment Spirituality of Patient [x] Person of Rosa [] Attends Mosque of their Rosa [x] Believes in Prayer [] Reads Bible or Rastafari materials [] There are Spiritual issues to be addressed Narcotics Investigator Interventions [x] Prayer [x] Active listening [x] Non-anxious presence [x] Spiritual/emotional support [] Crisis/trauma care [] Spiritual counseling [] Bereavement support [] Provided bereavement packet [] Provided Bible/devotional materials [] Provided toy/stuffed animal, coloring book to patient or family member [] Provided Communion [] Anointing/[place] [] Salvation [x] Completed spiritual assessment [] Other: Impact on Illness or Injury [] Angry [] Fearful [] Anxious [] Often cries [] Exhaustion [] Unable to work [] Unable to attend jew [] Unable to walk/stand [] Unable to read [] Unable to drive [] Unable to eat/drink [] Unable to sleep [] Unable to be with family [] Patient intubated [] Other: Summary Time spent with patient 5 min
[2023-02-16] MEDS: sodium chloride 0.9% 1,000 ML 100 ML IV ×2 (09:59→20:33)
--- NOTE | 2023-02-16 13:16 | P.PN_ITS ---
Subjective 2 Subjective: Patient underwent debridement today with wound care. Biopsies were obtained. Last dose of daptomycin yesterday. Met with and son at bedside. They are interested in alf placement at this time for custodial. Patient is unable to stand on his own. He is a assist to transfer at this time from commode to wheelchair and vice versa.. Vitals/I&O/Wt Last Vital Signs Temp 97.5 F L 02/16/23 11:42 Pulse 86 02/16/23 11:42 Resp 16 02/16/23 11:42 BP 122/66 02/16/23 11:42 Pulse Ox 93 02/16/23 11:42 O2 Del Method Room Air 02/16/23 11:42 02/15/23 02/16/23 02/16/23 22:59 06:59 14:59 Intake Total 300 / 1308.333 792.75 / 2101.083 1340 / 1340 Output Total 700 / 700 300 / 1000 Balance -400 / 608.333 492.75 / 9812.413 3982 / 1340 Weight last 48 hrs Weight 75.381 kg Weight 75.381 kg Weight 68.946 kg Physical Exam 2 Const: COMMON NORMALS: no acute distress, average body habitus, patient oriented x3 and alert HENMT: COMMON NORMALS: normocephalic and atraumatic HEAD & SCALP: n ormocephalic and atraumatic Eye: COMMON NORMALS: Equal, round and reactive pupils present and no scleral icterus PUPIL: Yes Equal, round and reactive pupils present Neck/C-Spine: COMMON NORMALS: No carotid bruits; negative for full ROM Chest: COMMONS NORMALS: normal palpation of entire chest wall Resp: COMMON NORMALS: normal respiratory effort Cardio: RHYTHM: abnormal rhythm irregularly irregular GI: COMMON NORMALS: Normal to inspection, nondistended, normoactive bowel sounds present : OTHER: Liriano catheter in place Extremity: NARRATIVE EXTREMITY EXAM: There are areas of eschar what appears to be full thickness skin necrosis in the pretibial regions and medially bilaterally and slightly posterior on the left. There are violaceous TG eschared areas as well. Neuro: COMMON NORMALS: patient oriented x3, no focal motor deficits and no sensory deficits noted SENSORIUM/ORIENTATION: Yes alert Urinary Catheter Management: Liriano: Cath Placed During This Visit: yes Reason for Continuing Indwelling Catheter: Acute Urinary Retention or Obstruction Urinary Catheter Date of Insertion: 02/14/23 Urinary Catheter Time of Insertion: 19:51 Data 02/16/23 04:21 02/16/23 04:21 Micro: Microbiology 02/15/23 04:34 Urine Culture - Preliminary Urine Catheterized A&P Assessment and plan (1) Acute on chronic kidney failure: Qualifiers: Acute renal failure type: unspecified Chronic kidney disease stage: u nspecified stage Qualified Code(s): N17.9 - Acute kidney failure, unspecified; N18.9 - Chronic kidney disease, unspecified (2) Dehydration: (3) Atrial fibrillation: Qualifiers: Atrial fibrillation type: unspecified Qualified Code(s): I48.91 - Unspecified atrial fibrillation (4) Dyspnea on exertion: (5) Skin ulceration: Qualifiers: Non-pressure ulcer stage: unspecified non-pressure ulcer stage Qualified Code(s): L98.499 - Non-pressure chronic ulcer of skin of other sites with unspecified severity (6) Protein calorie malnutrition: Plan Daniel Gibson Sr is a 87 yo man w/ b/l Sensorineural hearing loss requiring hearing aids, HTN, Atrial fibrillation, chronic wounds in his legs, a reaction to two tablets of Amlodipine in 08/29/2022, who presented to the ED on 02/14/2023 w/ complaints of poor healing of the wounds in his legs. In the ED, his BP was as low as 88/50 mmHg. He was given 1.5 L of NS. His Cr was ALEJANDRO on ~CKDIII and admitted for an ALEJANDRO on CKD with further management of his wounds. He also takes Lasix and lisinopril at home. These are on hold. #Chronic wound ulcers w/ Eschar: -Unknown etiology. Probable peripheral artery disease. Discussed with Dr. Parra at the wound clinic. He will perform skin biopsy tomorrow at the bedside. While his INR is 5.5 a tiny biopsy should not cause bleeding I will give low- dose vitamin K tonight and hold anticoagulation. -Once his creatinine clearance is improved to baseline I would recommend angiogram for possible intervention of peripheral artery disease at time of diagnosis. He could be hydrated with fluids per 24 hours prior and 48 hours after to prevent dye induced nephrotoxicity - He is on Daptomycin started at the wound clinic. [facility] helps with the administration of his Daptomycin. The last dose of Daptomycin is due on 02/16/2023 at noon and this is ordered. #ALEJANDRO on CKDIII - Possibly caused by the high dose of NSAIDS. -Continue on normal saline. - Ordered US of the kidney-bilateral low-attenuation masses involving the kidney. There are probably cysts but difficult to completely characterize due to body habitus. ? We will check CT abdomen pelvis without contrast secondary to kidney injury to hopefully better characterize these masses. #Hyponatremia: Likely due to hypovolemia. Normal saline at 100 cc an hour #Hypotension - Improved w/ H2O. Continue to monitor. Hold all hypertensives. #Afib: No indication that he is in Afib w/ RVR. Hold anticoagulation at this time. # Pain control per family the only medication that has worked was Anacin. However this is on hold due to kidney dysfunction. Will restart tramadol at 100 mg every 6 hours scheduled and Tylenol 650 mg every 6 hours scheduled Disposition: Family and patient interested in custodial facility at this time. Case management referral placed. Attestations 2 Medical Necessity Statement*: Patient's hospitalization will require greater than 2 nights stay for diagnosis and treatment of his lower extremity wounds. Diagnoses Acute on chronic kidney failure N17.9; N18.9 Acute renal failure type: unspecified Chronic kidney disease stage: unspecified stage Dehydration E86.0 Atrial fibrillation, unspecified type I48.91 Atrial fibrillation type: unspecified Dyspnea on exertion R06.09 Skin ulcer, unspecified ulcer stage L98.499 Non-pressure ulcer stage: unspecified non-pressure ulcer stage Protein calorie malnutrition E46
[2023-02-16] MEDS: sennosides 8.6 mg Tablet 17.2 MG PO (20:33)
[2023-02-17] VITALS (7 sets, daily range): BP systolic 102–131; BP diastolic 62–75; PULSE 71–86; RESP 16–17; TEMP 36.5–36.9; O2SAT 92–98
[2023-02-17] MEDS: TRAMadol 50 mg Tablet 100 MG PO ×3 (03:11→15:53)
[2023-02-17] MEDS: acetaminophen 325 mg Tablet 650 MG PO ×3 (03:11→15:53)
[2023-02-17 04:56] LABS: Basophils # 0.1 10^3/uL (0.0-0.1); Eosinophils # 0.1 10^3/uL (0.0-0.8); Eosinophils % 1.9 %; Hematocrit 31.7 % (37-53); Lymphocytes # 0.7 10^3/uL (0.8-4.8); Lymphocytes % 9.9 %; Mean Corpuscular HGB Conc 30.3 g/dL (30-55); Mean Corpuscular Hemoglobin 27.7 pg (27-33); Mean Corpuscular Volume 91.4 fl (82-101); Mean Platelet Volume 8.8 fL (7.4-10.4); Monocytes # 0.4 10^3/uL (0.2-0.9); Monocytes % 5.8 %; Neutrophils # 5.46 10^3/uL (1.8-7.7); Nucleated Red Blood Cells % 0 %; Platelet Count 274 10^3/cmm (157-399); Red Blood Count 3.47 10^6/uL (3.85-5.65); Red Cell Distribution Width 19.3 % (12.1-15.1); White Blood Count 6.75 10^3/uL (3.29-11.43)
[2023-02-17 05:18] LABS: Anion Gap 15.8 (5-19); Carbon Dioxide 18 mmol/L (22-29); Chloride 107 mmol/L (98-107); Glucose 77 mg/dL (65-115); Potassium 4.8 mmol/L (3.5-5.1); Sodium 136 mmol/L (136-145)
[2023-02-17 05:33] LABS: Blood Urea Nitrogen 34 mg/dL (8-23); Calcium 8.4 mg/dL (8.5-10.5); Osmolality Calculated 288 mOsm/kg (285-295)
[2023-02-17] MEDS: sodium chloride 0.9% 1,000 ML 100 ML IV (05:40)
[2023-02-17] MEDS: HYDROmorphone 1 mg/mL INJ 1 mL 0.5 MG IVP (05:45)
[2023-02-17] MEDS: duloxetine 30 mg Capsule PO (10:16)
--- NOTE | 2023-02-17 11:47 | PC.SOCIAL ---
IMM Update pg 2 of IMM updated and reviewed w/ patient. Copy provided and copy dated, initialed and placed in chart.
--- NOTE | 2023-02-17 11:50 | PC.SOCIAL ---
IMM Update pg 2 of IMM updated and reviewed w/ patient and his sons. Copy provided and copy dated, initialed and placed in chart.
--- NOTE | 2023-02-17 14:10 | PM.DCS ---
Discharge Providers Date of Admission: 02/14/23 14:23 Date of Discharge: February 17, 2023 Attending Provider at Admission: Marilee Crenshaw MD Attending Provider at Discharge: Suzy Reeves MD Primary Care Provider: Major Higginbotham DO Diagnoses at Discharge Discharge Diagnosis (1) Acute on chronic kidney failure: Status: Resolved Qualifiers: Acute renal failure type: unspecified Chronic kidney disease stage: unspecified stage Qualified Code(s): N17.9 - Acute kidney failure, unspecified; N18.9 - Chronic kidney disease, unspecified (2) Dehydration: Status: Resolved (3) Atrial fibrillation: Status: Acute Qualifiers: Atrial fibrillation type: unspecified Qualified Code(s): I48.91 - Unspecified atrial fibrillation (4) Dyspnea on exertion: Status: Resolved (5) Skin ulceration: Status: Acute Qualifiers: Non-pressure ulcer stage: unspecified non-pressure ulcer stage Qualified Code(s): L98.499 - Non-pressure chronic ulcer of skin of other sites with unspecified severity (6) Protein calorie malnutrition: Status: Acute Reason for Visit Reason for Visit: cant urinate, open wounds on legs Hospital Course Hospital Course Patient was admitted for generalized weakness and ALEJANDRO. He has been following up with wound care for chronic wounds on his legs out of bed somewhat necrotic. He had a wound biopsy done during hospital stay with Dr. Parra. He has been on IV daptomycin. He was given last dose of IV daptomycin in the hospital, PICC line was removed and he was discharged home to follow-up with wound care as an outpatient. He was also given a follow-up with dermatology and infectious disease. Patient sent to SNF. Physical Exam Const: COMMON NORMALS: no acute distress, average body habitus, patient oriented x3 and alert HENMT: COMMON NORMALS: normocephalic and atraumatic HEAD & SCALP: normocephalic and atraumatic Eye: COMMON NORMALS: Equal, round and reactive pupils present and no scleral icterus PUPIL: Yes Equal, round and reactive pupils present Neck/C-Spine: COMMON NORMALS: No carotid bruits; negative for full ROM Chest: COMMONS NORMALS: normal palpation of entire chest wall Resp: COMMON NORMALS: normal respiratory effort Cardio: RHYTHM: abnormal rhythm irregularly irregular GI: COMMON NORMALS: Normal to inspection, nondistended, normoactive bowel sounds present : OTHER: Liriano catheter in place Extremity: NARRATIVE EXTREMITY EXAM: There are areas of eschar what appears to be full thickness skin necrosis in the pretibial regions and medially bilaterally and slightly posterior on the left. There are violaceous TG eschared areas as well. Neuro: COMMON NORMALS: patient oriented x3, no focal motor deficits and no sensory deficits noted SENSORIUM/ORIENTATION: Yes alert Urinary Catheter Management: Liriano: Cath Placed During This Visit: yes Reason for Continuing Indwelling Catheter: Accurate Measurement of Urinary Output in Critically Ill Patients Urinary Catheter Date of Insertion: 02/14/23 Urinary Catheter Time of Insertion: 19:51 Discharge Data Studies Completed and Pending Completed Studies During Hospitalization Category Date Time Status CT head wo con* [id number] Routine Cat Scan 02/15/23 22:24 [place] [id number] Routine Ultrasound 02/15/23 08:00 Completed US kidney bilateral [US renal BI* [id number]] Routine Ultrasound 02/15/23 08:00 Completed Pending at discharge Category Date Time Status Basic Metabolic Panel AM LABS Lab 02/18/23 04:00 Ordered COVID [SARS Covid-2 Antigen] Routine Lab 02/17/23 14:09 Ordered Pathology: Surgical [PTH] Routine Pth 02/16/23 05:45 Received Radiology Impressions Head CT 02/15/23 22:24 IMPRESSION: 1. Negative for intracranial hemorrhage or mass effect. 2. Moderate diffuse white matter disease likely reflecting chronic microvascular ischemic changes. 3. Right caudate nucleus chronic lacunar infarct. Laboratory Results WBC 6.75 10^3/uL (3.29-11.43) 02/17/23 04:26 RBC 3.47 10^6/uL (3.85-5.65) L 02/17/23 04:26 Hgb 9.60 g/dL (11.27-16.99) L 02/17/23 04:26 Hct 31.7 % (37-53) L 02/17/23 04:26 MCV 91.4 fl (82-101) 02/17/23 04:26 MCH 27.7 pg (27-33) 02/17/23 04:26 MCHC 30.3 g/dL (30-55) 02/17/23 04:26 RDW 19.3 % (12.1-15.1) H 02/17/23 04:26 Plt Count 274 10^3/cmm (157-399) 02/17/23 04:26 MPV 8.8 fL (7.4-10.4) 02/17/23 04:26 Neut % (Auto) 81.0 % 02/17/23 04:26 Lymph % (Auto) 9.9 % 02/17/23 04:26 Lucas % (Auto) 5.8 % 02/17/23 04:26 Eos % (Auto) 1.9 % 02/17/23 04:26 Baso % (Auto) 1.0 % 02/17/23 04:26 Neut # (Auto) 5.46 10^3/uL (1.8-7.7) 02/17/23 04:26 Lymph # (Auto) 0.7 10^3/uL (0.8-4.8) L 02/17/23 04:26 Lucas # (Auto) 0.4 10^3/uL (0.2-0.9) 02/17/23 04:26 Eos # (Auto) 0.1 10^3/uL (0.0-0.8) 02/17/23 04:26 Baso # (Auto) 0.1 10^3/uL (0.0-0.1) 02/17/23 04:26 Nucleated RBC % (auto) 0 % 02/17/23 04:26 Nucleated RBCs # 0.0 /100WBC 02/17/23 04:26 PT 29.60 SECONDS (12.1-14.9) H 02/16/23 04:21 INR 2.69 (0.8-1.2) H 02/16/23 04:21 APTT 86.6 SECONDS (23.9-36.7) H 02/15/23 10:27 Specimen Type Arterial 02/15/23 23:37 Sample Site Brachial, right 02/15/23 23:37 ABG pH 7.35 (7.35-7.45) 02/15/23 23:37 ABG pCO2 31.9 mmHg (35-45) L 02/15/23 23:37 ABG pO2 94.5 mmHg (80.0-100.0) 02/15/23 23:37 ABG HCO3 17.6 mmol/L (22-26) L 02/15/23 23:37 ABG Base Excess -7.0 mmol/L (-2.0-2.0) L 02/15/23 23:37 Gt Test N/a 02/15/23 23:37 Hematocrit 40.3 % (42-52) L 02/15/23 23:37 O2 Delivery Device Nc 02/15/23 23:37 O2 Liters/Min 2.0 % 02/15/23 23:37 Factory Assembler ID [email or web address] 02/15/23 23:37 Sodium 136 mmol/L (136-145) 02/17/23 04:26 Potassium 4.8 mmol/L (3.5-5.1) 02/17/23 04:26 Chloride 107 mmol/L (98-107) 02/17/23 04:26 Carbon Dioxide 18 mmol/L (22-29) L 02/17/23 04:26 Anion Gap 15.8 (5-19) 02/17/23 04:26 BUN 34 mg/dL (8-23) H 02/17/23 04:26 Creatinine 1.9 mg/dL (0.7-1.2) H 02/17/23 04:26 GFR Calculation Not Reportable 02/17/23 04:26 Glucose 77 mg/dL (65-115) 02/17/23 04:26 Calculated Osmolality 288 mOsm/kg (285-295) 02/17/23 04:26 Lactate 0.7 mmol/L (0.5-2.2) 02/16/23 04:21 Calcium 8.4 mg/dL (8.5-10.5) L 02/17/23 04:26 Phosphorus 3.1 mg/dL (2.5-4.5) 02/15/23 10:27 Magnesium 1.8 mg/dL (1.7-2.3) 02/15/23 10:27 Total Bilirubin 0.2 mg/dL (0.15-1.2) 02/15/23 10:27 AST 27 U/L (0-40) 02/15/23 10:27 ALT 11 U/L (0-41) 02/15/23 10:27 Alkaline Phosphatase 112 U/L (40-130) 02/15/23 10:27 Ammonia 29 umol/L (16-60) 02/16/23 04:21 Troponin T 5th Gen ng/L 66 ng/L (0-15) H 02/16/23 04:21 Total Protein 5.8 g/dL (6.6-8.7) L 02/15/23 10:27 Albumin 2.6 g/dL (3.5-5.2) L 02/15/23 10:27 Globulin 3.2 g/dL (1.3-4.6) 02/15/23 10:27 TSH 0.90 uIU/mL (0.27-4.20) 02/15/23 10:27 Urine Color Yellow (Yellow) 02/14/23 13:55 Urine Appearance Clear (CLEAR) 02/14/23 13:55 Urine pH 5 (5-7) 02/14/23 13:55 Ur Specific [place] 1.025 (1.005-1.030) 02/14/23 13:55 Urine Protein Trace (Negative) 02/14/23 13:55 Urine Glucose (UA) Norm (Normal) 02/14/23 13:55 Urine Ketones Negative (Negative) 02/14/23 13:55 Urine Blood Neg (Negative) 02/14/23 13:55 Urine Nitrate Negative (Negative) 02/14/23 13:55 Urine Bilirubin 1+ (Negative) H 02/14/23 13:55 Urine Urobilinogen Norm mg/dL (Negative) 02/14/23 13:55 Ur Leukocyte Esterase Negative (Negative) 02/14/23 13:55 Urine RBC None /hpf (0-2) 02/14/23 13:55 Urine WBC 0-4 /hpf (0-5) H 02/14/23 13:55 Ur Squamous Epith Cells 0-4 /hpf (0-5) H 02/14/23 13:55 Amorphous Sediment 1+ /hpf 02/14/23 13:55 Urine Bacteria Trace /hpf (NONE) 02/14/23 13:55 Ur Random Sodium 106 mmol/L 02/15/23 04:34 Urine Creatinine 71 mg/dL (39-259) 02/15/23 04:34 Vitals Last Vital Signs Temp 98.2 F 02/17/23 11:34 Pulse 71 02/17/23 11:34 Resp 17 02/17/23 11:34 BP 110/70 02/17/23 11:34 Pulse Ox 98 02/17/23 11:34 O2 Del Method Room Air 02/17/23 11:34 Discharge Plan Discharge Patient Disposition: Xfer SNF Condition: Stable Prescriptions: Continued (DME) hydrofera blue ready See Rx Instructions .Route .MEDSUPPLY Qty: 1 0RF Rx Instructions: As directed per included instructions lisinopril 5 mg tablet 5 mg PO QAM Qty: 90 0RF tramadol 50 mg tablet 50 mg PO BID PRN (Reason: pain) Qty: 60 0RF warfarin 3 mg tablet 3 mg PO QAM daptomycin 500 mg recon soln See Rx Instructions .ROUTE .COMPLEX Rx Instructions: 200ML/HR EVERY 48 HOURS furosemide 40 mg tablet 40 mg PO QAM meclizine 12.5 mg Tablet 12.5 mg PO TID PRN (Reason: Dizziness) Super Beta Prostate 1 cap PO BID prednisone 5 mg tablet 5 mg PO QAM Rx Instructions: MEDICATION ON HOLD Anacin 400-32 mg Tablet 3 tab PO Q6H PRN (Reason: Pain) omeprazole 20 mg capsule,delayed release(DR/EC) 20 mg PO QAM Discharge Orders: Discharge Order (Routine); Ordered 02/17/23 Ordered By: Suzy Reeves Referrals: [facility] [place] [Outside] Stacey Aguillon MD [Hospitalist] - 7-10 days (We have notified your physician's clinic of the need for a follow-up appointment to be scheduled. If you have not heard from them within the next 2 business days, please call them directly. ) Naomie Riggs DO [Physician] - 4-7 days (We have notified your physician's clinic of the need for a follow-up appointment to be scheduled. If you have not heard from them within the next 2 business days, please call them directly. ) Major Higginbotham DO [Primary Care Provider] - Discharge Diet: Cardiac Discharge Activity: Increase activity as tolerated and As per PT/OT instructions Patient Instructions: Opioid Safety Discharge Attestations Time Spent in Discharge Care*: greater than 30 min Quality Metrics Clinical Quality Measures [ No reported AMI, CVA or VTE this stay] Coding Level of Care Code Acute Code for g Fwd Diagnoses Acute on chronic kidney failure N17.9; N18.9 Acute renal failure type: unspecified Chronic kidney disease stage: unspecified stage Dehydration E86.0 Atrial fibrillation, unspecified type I48.91 Atrial fibrillation type: unspecified Dyspnea on exertion R06.09 Skin ulcer, unspecified ulcer stage L98.499 Non-pressure ulcer stage: unspecified non-pressure ulcer stage Protein calorie malnutrition E46
[2023-02-17 14:28] LABS: SARS Covid-2 Antigen negative (Negative)
== END 2023-02-17 16:20 | disposition skilled nursing facility (03) | DRG 603 ==
LOC: ER 14:41 → MEDSURG 16:37
PROVIDERS: Internal Medicine; Admitting Provider Internal Medicine; Emergency Provider Emergency Medicine; PCP Family Medicine; Visit Provider Internal Medicine
DX: L03.116 Cellulitis of left lower limb (principal); N17.9 Acute kidney failure, unspecified; E87.1 Hypo-osmolality and hyponatremia; E46 Unspecified protein-calorie malnutrition; I96 Gangrene, not elsewhere classified; I95.9 Hypotension, unspecified; H90.3 Sensorineural hearing loss, bilateral; N18.30 Chronic kidney disease, stage 3 unspecified; I12.9 Hypertensive chronic kidney disease with stage 1 through stage 4 chronic kidney disease, or unspecified chronic kidney disease; I48.91 Unspecified atrial fibrillation; E86.0 Dehydration; I87.8 Other specified disorders of veins; R06.00 Dyspnea, unspecified; Z11.52 Encounter for screening for COVID-19; Z79.01 Long term (current) use of anticoagulants; Z79.82 Long term (current) use of aspirin; Z68.23 Body mass index [BMI] 23.0-23.9, adult
CPT/HCPCS: 36415; 36592; 51701; 51702; 70450; 76770; 80048; 80053; 81001; 82140; 82550; 82565; 82570; 82803; 83605; 83735; 84100; 84300; 84443; 84484; 84520; 85025; 85610; 85730; 87086; 87426; 88304; 88312; 93005; 93925; 96372; 97163; 97167; 97535; 99285; J1170; J1650; J3430; J7030; J7040

== ENCOUNTER → 2023-02-18 13:55 | Outpatient (BNVA) | payer OTHER, SELFPAY | PROVIDERS: PCP Family Medicine; Visit Provider Thoracic Surgery (Cardiothoracic Vascular Surgery) | DX: I96 Gangrene, not elsewhere classified (principal); L97.512 Non-pressure chronic ulcer of other part of right foot with fat layer exposed; L97.812 Non-pressure chronic ulcer of other part of right lower leg with fat layer exposed; L97.822 Non-pressure chronic ulcer of other part of left lower leg with fat layer exposed | CPT/HCPCS: 99213 ==

== ENCOUNTER → 2023-02-26 11:29 | Outpatient (BNVA) | payer OTHER, SELFPAY | PROVIDERS: PCP Family Medicine; Visit Provider Student in an Organized Health Care Education/Training Program | DX: M25.552 Pain in left hip; M70.62 Trochanteric bursitis, left hip | CPT/HCPCS: 20610; 99213; 99214; J3301; J3490 ==